=== PATIENT | male | born 1945 | race Caucasian/White ===

== ENCOUNTER → 2018-05-06 08:32 | Outpatient (CLI) | payer OTHER, SELFPAY ==
[2018-05-06 10:09] LABS: PSA,Total - Annual Screen 1.62 ng/mL (0.00-4.00)
== END ==
PROVIDERS: Family Provider Family Medicine; PCP Family Medicine; Referring Provider Urology; Visit Provider Urology
DX: Z12.5 Encounter for screening for malignant neoplasm of prostate (principal)
CPT/HCPCS: 36415; 84153; G0103

== ENCOUNTER 2018-06-03 06:48 | Day surgery (SDC) | payer SELFPAY, OTHER ==
--- NOTE | 2018-06-01 08:20 | EKG12_ITS ---
Test Reason : PRE OP Blood Pressure : / mmHG Vent. Rate : 076 BPM Atrial Rate : 076 BPM P-R Int : 156 ms QRS Dur : 094 ms QT Int : 402 ms P-R-T Axes : 060 -22 036 degrees QTc Int : 452 ms Normal sinus rhythm Minimal voltage criteria for LVH, may be normal variant Borderline ECG Confirmed by WINIFRED FARAH, ANTONELLA ([id number]), editorial specialist MARY GREEN ([id number]) on 06/03/2018 3:01:03 PM Referred By: Jewel Haque Confirmed By:ANTONELLA VITALE MD
[2018-06-01 09:42] LABS: Hematocrit 38.3 % (40-54); Hemoglobin 12.7 g/dl (13.0-16.5); Mean Corp Hgb Conc 33.2 g/gl (32-36); Mean Corpuscular Hgb 32.8 pg (27.0-32.0); Mean Platelet Vol. 9.8 fl (6.2-12.0); Platelet Count 167 K/mm3 (150-450); RBC Distribution Width CV 13.8 % (11.6-14.6); RBC Distribution Width SD 48.5 fl (35.1-43.9); Red Blood Count 3.87 M/mm3 (4.6-6.2)
[2018-06-01 09:43] LABS: Scan Indicated on CBC? Y/N NO
[2018-06-01 10:11] LABS: Anion Gap 7 (5-15); BUN 20 mg/dL (7-18); BUN/Creat Ratio 18.3 RATIO (10-20); Calcium,Total 8.2 mg/dL (8.5-10.1); Chloride 104 mmol/L (98-107); Creatinine, Serum 1.09 mg/dL (0.70-1.30); EST Glomerular Filtration Rate 71 mL/min (>60); Est Glom Filt Rate - Afr Amer 85 mL/min (>60); Glucose 98 mg/dL (74-106); Potassium 3.7 mmol/L (3.5-5.1); Sodium Level 142 mmol/L (136-145)
[2018-06-03] VITALS (8 sets, daily range): BP systolic 129–146; BP diastolic 75–92; PULSE 64–68; RESP 16–18; TEMP 36.2–36.8; O2SAT 94–100; BMI 34.1
--- NOTE | 2018-06-03 | HERN_PTH ---
PATIENT: FRANSISCO SILVERIO [place] [facility] [place][id number] AGE/SX: 73/M ROOM: RE06/03/[address]: Dr. Jewel Haque MD : 1945 BED: DIS: 06/03/2018 SPEC #: [id number] RECD: 06/03/18 14:41 STATUS: LEXUS PREET #: [id number] GRAYSON: 06/03/18 00:[address]: Jewel Haque DEPT: SURGICAL PATHOLOGY RECD BY: Howard Loera ENTERED: 06/03/18 14:42 SP TYPE: Hernia OTHR DR: Dr. Otoniel Diamond MD Tissues: HERNIA Procedures: Surgery Specimen Level II HEADER OPERATION: Hernia, umbilical repair with mesh, open PRE-OP DIAGNOSIS: Umbilical hernia with our obstruction or gangrene TISSUE SUBMITTED: Hernia sac and contents MICROSCOPIC DIAGNOSIS Soft tissue of umbilical region, excision: Hernia sac with fibrosis and mild chronic inflammation. AM:yuan 06/06/18 MICROSCOPIC DESCRIPTION Slides are reviewed. GROSS DESCRIPTION Received in fixative is one container labeled with the patient's name and designated umbilical hernia sac and contents. The specimen consists of a piece of yellow adipose tissue measuring 4 x 3.5 x 2.5 cm. Sections do not reveal any mass lesion. Iron Handler sections are submitted in one cassette. / SJ:yuan 06/03/18 TC:5 CPT: 75062
--- NOTE | 2018-06-03 09:28 | DCINST_ITS ---
Discharge Diet: Light diet - advance as tolerated - if you have questions about your diet instructions, please talk to you doctor. Discharge Activity: May Not Drive - for 1 week or while taking narcotic pain medicine. May shower in (days): 1 Lifting Restrictions: 10 pounds Call your doctor if your incision/area has: Continuous Slow Oozing, Sudden Increased Bleeding, Increased Pain/ Swelling, Increased Redness, Foul Smelling Discharge Call your doctor if you observe: Fever of 101 or Higher Suture Line Care: Avoid Pulling/Pushing, Avoid Pinching/Bending Additional Dressing/Incision Instructions:: Change or remove dressing in 4 days. Leave steri-strips in place for 1 week. Allergies/Adverse Reactions: Allergies Penicillins Allergy (Verified 05/31/18 09:00) Rash prednisolone Allergy (Verified 05/31/18 09:00) Rash Medications to take at Discharge finasteride 5 mg tablet 5 mg PO QHS 05/23/18 [place] 1 cap PO DAILY 05/31/18 Saw [place] 2 cap PO BID 05/31/18 Ubidecarenone/Vit E Acetate [Co Q-10 100 mg Softgel] 1 each PO BID 05/31/18 Vit A/Vit C/Vit E/Zinc/Copper [Preservision Areds Softgel] 1 each PO BID 05/31/18 Hydrocodone Bitart/Apap 5-325 [Fiatt 5MG-325MG] 1 tablet PO Q4H PRN PRN 3 Days #8 tablet 06/03/18 The following prescriptions were given: Hydrocodone Bitart/Apap 5-325 [Fiatt 5MG-325MG] 1 tablet PO Q4H PRN PRN 3 Days #8 tablet PRN Reason: Pain Primary Care Physician: Otoniel Diamond MD [Primary Care Provider] - Test Results: Test results from this visit will be discussed in further detail at your follow- up appointment, if applicable. Please Follow Up With: Jewel Haque MD - [phone] When: Call to make an appointment to be seen in about 10 days.
--- NOTE | 2018-06-03 10:18 | PCM.OPRPT ---
Problem List (1) Umbilical hernia without obstruction or gangrene Status: Acute Report of Operation Date of Procedure: 06/03/18 Pre-Operative Diagnosis: Umbilical hernia Post-Operative Diagnosis: Same Surgery/Procedure Performed:: Umbilical herniorrhaphy with 8 cm ventral X mesh. Reference #[id number]. Lot number [id number]. Expiry date 03/15/2020 Description of Surgical Findings:: Timeout and informed consent was obtained. 73-year-old gent was taken to the operating room placed on the table underwent general endotracheal intubation anesthesia. Clindamycin 90 mg were given intravenous preoperatively. The abdomen was sterilely prepped draped. A curvilinear incision was made in the infra portion of the umbilicus. Sharp and blunt dissection was used to dissect carefully the umbilical skin free from the hernia sac. There was a large amount of preperitoneal fat and omentum within the hernia sac. This was carefully dissected free and freed. Sac and contents were submitted as a specimen. Palpation revealed good release of the intra-abdominal omentum. The defect measured approximately 3-1/2 cm in diameter. A 8 cm ventral X product was inserted. The tails was carefully secured with interrupted 0 Nurolon. The fascia was then approximated transversely with interrupted 0 Nurolon. Skin edges proximate interrupted 4 Monocryl subdermal stitches. Steri-Strips cottonball Telfa OpSite dressings applied. Sponge and instrument and needle counts were reported to the surgeon be correct. Blood loss was minimal. No apparent complications. Specimen hernia sac and contents. Drains none. Blood loss minimal. Jewel Haque M.D., F.A.C.S. Type of Anesthesia:: General Anesthesiologist: Armando Lozada
--- NOTE | 2018-06-03 10:22 | OP.PCM_ITS ---
Problem List (1) Umbilical hernia without obstruction or gangrene Status: Acute Report of Operation Date of Procedure: 06/03/18 Pre-Operative Diagnosis: Umbilical hernia Post-Operative Diagnosis: Same Surgery/Procedure Performed:: Umbilical herniorrhaphy with 8 cm ventral X mesh. Reference #[id number]. Lot number [id number]. Expiry date 03/15/2020 Description of Surgical Findings:: Timeout and informed consent was obtained. 73-year-old gent was taken to the operating room placed on the table underwent general endotracheal intubation anesthesia. Clindamycin 90 mg were given intravenous preoperatively. The abdomen was sterilely prepped draped. A curvilinear incision was made in the infra portion of the umbilicus. Sharp and blunt dissection was used to dissect carefully the umbilical skin free from the hernia sac. There was a large amount of preperitoneal fat and omentum within the hernia sac. This was carefully dissected free and freed. Sac and contents were submitted as a specimen. Palpation revealed good release of the intra-abdominal omentum. The defect measured approximately 3-1/2 cm in diameter. A 8 cm ventral X product was inserted. The tails was carefully secured with interrupted 0 Nurolon. The fascia was then approximated transversely with interrupted 0 Nurolon. Skin edges proximate interrupted 4 Monocryl subdermal stitches. Steri-Strips cottonball Telfa OpSite dressings applied. Sponge and instrument and needle counts were reported to the surgeon be correct. Blood loss was minimal. No apparent complications. Specimen hernia sac and contents. Drains none. Blood loss minimal. Jewel Haque M.D., F.A.C.S. Type of Anesthesia:: General Anesthesiologist: Armando Lozada
[2018-06-03] MEDS: Bupivacaine Mpf 0.5% 30 ML VIAL (10:30)
== END 2018-06-03 14:03 | disposition home or self-care (01) ==
LOC: SDC 06:50 → AC 06:50
PROVIDERS: Family Provider Family Medicine; PCP Family Medicine; Referring Provider Surgery; Visit Provider Surgery
PROC: 0WQF4ZZ Repair Abdominal Wall, Percutaneous Endoscopic Approach (ICD-10-PCS; CPT 49585; principal; 2018-06-03 09:00)
DX: K42.9 Umbilical hernia without obstruction or gangrene (principal); N40.1 Benign prostatic hyperplasia with lower urinary tract symptoms; R33.8 Other retention of urine
CPT/HCPCS: 00750; 49585; 36415; 80048; 85027; 88302; 93005; J7120; C1781; J2405

== ENCOUNTER → 2018-11-18 | Outpatient (CLI) | payer SELFPAY ==
[2018-06-06 14:54] VITALS: BMI 34.1
[2018-11-16 08:26] LABS: Bacteria 0 SEEN /hpf (None Seen); Mucous, Urine 0 SEEN /hpf (<or=2+); Squamous Epithelial Cells - UA 0 SEEN /hpf (0-5)
[2018-11-16 08:48] LABS: Hematocrit 38.3 % (40-54); Hemoglobin 12.8 g/dl (13.0-16.5); Mean Corp Hgb Conc 33.4 g/gl (32-36); Mean Corpuscular Hgb 32.7 pg (27.0-32.0); Mean Platelet Vol. 9.3 fl (6.2-12.0); Platelet Count 180 K/mm3 (150-450); RBC Distribution Width CV 14.2 % (11.6-14.6); RBC Distribution Width SD 48.5 fl (35.1-43.9); Red Blood Count 3.91 M/mm3 (4.6-6.2); Scan Indicated on CBC? Y/N NO; White Blood Count 6.3 K/mm3 (4.4-11.0)
[2018-11-16 08:54] LABS: Color, Urine Yellow (Yellow); Glucose, Dipstick Normal (Normal); Ketone-Dipstick Negative (Negative); Leukocyte Esterase-Dipstick 25 /ul (Negative); Nitrite-Dipstick Negative (Negative); Occult Blood-Urine 10 /ul (Negative); Protein-Dipstick Negative (Negative); Specific Gravity, Urine 1.015 (1.002-1.030); Urine Bilirubin Dipstick Negative (Negative); Urine Clarity Clear (Clear); Urine Urobilinogen Normal (Normal)
[2018-11-16 09:03] LABS: Red Blood Cells-Urine 0-5 SEEN /hpf (0-5); White Blood Cells 0-5 SEEN /hpf (0-5)
[2018-11-16 09:11] LABS: Hemoglobin A1c 5.4 % (4.2-6.3)
[2018-11-16 09:20] LABS: ALB/GLOB Ratio 0.7 RATIO (0.9-2.4); AST(SGOT) 26 U/L (15-37); Alanine Aminotransfer ALT/SGPT 37 U/L (16-61); Albumin, Serum 3.5 g/dL (3.2-5.0); Alkaline Phosphatase 82 U/L (45-117); Anion Gap 4 (5-15); BUN 16 mg/dL (7-18); BUN/Creat Ratio 15.4 RATIO (10-20); Calcium,Total 8.5 mg/dL (8.5-10.1); Chloride 106 mmol/L (98-107); Cholesterol 95 mg/dL (200); Creatinine, Serum 1.04 mg/dL (0.70-1.30); EST Glomerular Filtration Rate 74 mL/min (>60); Est Glom Filt Rate - Afr Amer 90 mL/min (>60); Globulin 4.7 g/dL (2.2-4.2); Glucose 106 mg/dL (74-106); High Density Lipoprotein 32 mg/dL; PSA,Total - Annual Screen 1.76 ng/mL (0.00-4.00); Potassium 3.7 mmol/L (3.5-5.1); Protein, Total 8.2 g/dL (6.4-8.2); Sodium Level 141 mmol/L (136-145); Thyroid Stim Hormone (TSH) 2.47 uIU/mL (0.358-3.74); Triglycerides 82 mg/dL; Very Low Density Lipoprotein 16 mg/dL (5-40)
[2018-11-16 09:32] LABS: Homocysteine 8.2 umol/L (3.2-10.7)
[2018-11-16 09:55] LABS: Vitamin D,25 Hydroxy 20.8 ng/mL (29.95-100.01)
--- NOTE | 2018-11-18 09:45 | EKG12_ITS ---
Test Reason : EXEC PHYS Blood Pressure : / mmHG Vent. Rate : 054 BPM Atrial Rate : 054 BPM P-R Int : 158 ms QRS Dur : 090 ms QT Int : 450 ms P-R-T Axes : 044 -13 029 degrees QTc Int : 426 ms Sinus bradycardia with sinus arrhythmia Otherwise normal ECG Confirmed by WINIFRED FARAH, ANTONELLA ([id number]), assignment desk editor YUDITH COOLEY ([id number]) on 11/22/2018 1:44:53 PM Referred By: Jose Schroeder Confirmed By:ANTONELLA VITALE MD
--- NOTE | 2018-11-18 19:32 | BFS_ITS ---
Reason For Study: Screening Carotid Duplex Ultrasound Abdominal Aorta The right maximum ICA velocity is 92.5/21.2 cm/s. The maximal outside diameter of the proximal aorta The left maximum ICA velocity is 85.1/22.5 cm/s. measures 1.82 x 1.81 cm in the cross-sectional The right ECA velocity is less than 125 cm/s. axis. The left ECA velocity is less than 125 cm/s. The maximal outside diameter of the proximal aorta There is no plaque formation noted on the right measures 1.63 cm in the longitudinal axis. side. There is insignificant plaque formation noted on the left side. Interpretation Summary Normal carotid artery screening (0 to 15% narrowing). Normal aortic ultrasound exam. Performed By: Maureen Cage RVT
== END | disposition home or self-care (01) ==
LOC: PAVLAB 08:20
PROVIDERS: Family Provider Family Medicine; PCP Family Medicine; Referring Provider Internal Medicine; Visit Provider Internal Medicine
DX: Z00.00 Encounter for general adult medical examination without abnormal findings (principal)
CPT/HCPCS: 36415; 80053; 80061; 81001; 82306; 83036; 83090; 84153; 84443; 85027; 93005; G0103

== ENCOUNTER 2019-01-09 07:47 | Day surgery (SDC) | payer SELFPAY ==
[2018-11-18 14:53] VITALS: BMI 34.1
[2019-01-09 08:09] VITALS: BP 117/79; PULSE 74; RESP 16; TEMP 36.4; O2SAT 97; BMI 32.7
--- NOTE | 2019-01-09 09:03 | HP.PCM_ITS ---
History of Present Illness Date of Admission: 01/09/19 The patient is a 73 year old M who presents for screening colonoscopy. Past Medical/Surgical History - Planned Operation Planned Operative Procedure/s: COLONOSCOPY Date of Operative Procedure: 01/09/19 Permit Signed: Yes S.O.S: No - Previous Hospitalizations/Surgeries HX Hospitalizations: No HX of Surgeries: LAP ZEUS. HERNIA Any Problems With Anesthesia: No You/Your Family Experience Fever (Hyperthermia) With Anes: No Cholinesterase deficiency: No - Cardiovascular Hx Chest Pain within Last 2 months: No Hx of Irregular Heartbeat and/or Afib: No Hx Heart Attack: No Hx Congestive Heart Failure: No Hx Rheumatic Fever: No Hx Hypertension: No Hx Internal Defibrillator: No Hx Pacemaker: No Hx Cardiac Catheterization: No Hx Cardiac Surgery/Stents/Etc.: No Hx Stress Test: Yes - [facility] HX Edema: Yes - WEARS COMPRESSION SOCKS Hx Pain in Legs when Walking/Leg Cramps: No - Respiratory Chronic Cough: No HX of Shortness of Breath: No Hoarseness: No Hx Chronic Obstructive Pulmonary Disease (COPD): No Hx Asthma: No Hx Emphysema: No Hx Sleep Apnea: No Hx Oxygen Use at Home: No Hx Respiratory Tract Infection/Cold (presently): No - SINUS DRAINAGE Do You Snore Loudly (louder than talking or can be heard): Yes Do You Often Feel Tired/ Fatigued/ Sleepy Dring Daytime?: No Has Anyone Observed You Stop Breathing During Sleep?: No Result (for STOP score): Negative Hx Smoking: No Smoking Status: Never smoker - Gastrointestinal Hx Gastroesophageal Reflux: No Hx Gastrointestinal Disorders: No Hx Gastrointestinal Bleed: No Hx Ulcer: No Hx Hiatal Hernia: No Difficulty Chewing/Swallowing: No Recent Onset of Swallowing Problems: No Special diet followed at home: No Hx Unplanned Weight Loss of 20#: No HX Unplanned Weight Gain of 20#: No - Neurological Hx Seizures: No HX Syncope/Blackout Spells/Unconsciousness: No Hx CVA/Stroke: No Hx Transient Ischemic Attacks (TIA): No Hx Multiple Sclerosis: No Hx Parkinson's Disease: No Hx Head/Neck Injury: No Hx Headaches: No Hx Back Injury/Pain: Yes - LOWER PACK PAIN Recent Onset of Speech Difficulty: No Restless Legs: No Does patient have nerve stimulator: No - Blood Disorder Hx Leukemia: No Bleeding Tendencies: No Hx Deep Vein Thrombosis: No Hx High Cholesterol: No Blood Transmitted Disease: No Hx Hepatitis: No Hx Cirrhosis: No Hx Anemia: No Hx Blood Disorders: No - Genitourinary Hx Renal Disease: No - BPH Hx Dialysis: No - Musculoskeletal Hx Arthritis: No Hx Rheumatoid Arthritis: No Hx Gout: No Recent Onset of an Orthopedic Problem: No - Endocrine Hx Diabetes: No Thyroid Disease: No Hx Steroid Therapy: No - Psycho/Social Hx Substance Use: No Hx Alcohol Use: No Hx Anxiety: No Hx Depression: No Mental Illness: No Hx Dementia: No - Miscellaneous Hx Cancer: No Recent Exposure to Contagious Disease: No Active MRSA: No Hx of C-Diff: No Any Loose Teeth: No Allergies Penicillins Allergy (Verified 01/09/19 08:04) Rash prednisolone Allergy (Verified 01/09/19 08:04) Rash Maternal Family History: Family History (Last Updated 11/17/18 @ 10:29 by Shazia Handy) Father Rheumatoid arthritis CHF (congestive heart failure) - - Discharge Is Pt Admitted From a [facility], or a Prison: No Who Could Help: After D/C, Where Do you Plan to Go: Return Home - Physical Exam General: Alert, Oriented x3 Lungs: Clear to auscultation Cardiovascular: Regular rate, Regular Rhythm, No murmurs Abdomen: Bowel Sounds Present, Soft, Non Tender, Non-Distended Vital Signs Temp Pulse Resp BP Pulse Ox 97.5 F L 74 16 117/79 97 01/09/19 08:09 01/09/19 08:09 01/09/19 08:09 01/09/19 08:09 01/09/19 08:09 Oxygen Delivery Method Room Air Weight: 231 lb 7.766 oz Body Mass Index (BMI) 32.7 Assessment/Plan All Active Problems (Last Updated 11/17/18 @ 10:27 by Shazia Handy) Umbilical hernia without obstruction or gangrene (Acute) Urinary retention (Acute) BPH (benign prostatic hyperplasia) (Acute) Plan is to perform a colonoscopy. Surgery Risks - Colonoscopy Risks Include but are not Limited To: Risks include but are not limited to: Bleeding, perforation requiring further surgery, inability to complete colonoscopy requiring barium enema.
[2019-01-09 09:25] VITALS: BP 117/79; BP 130/77; PULSE 68; RESP 18; TEMP 36.5; O2SAT 95
--- NOTE | 2019-01-09 09:27 | OP.ENDO_ITS ---
01/09/2019 Otoniel Diamond [address] [place] [address] Re : Colonoscopy procedure for Daniel August Dear Dr. Diamond This procedure was performed on Wednesday, January 09, 2019. My impressions and recommendations are as follows: Impressions : - Diverticulosis in the sigmoid colon and in the descending colon. No specimens collected. - Non-bleeding internal hemorrhoids. - The examination was otherwise normal. Recommendations : - Discharge patient to home. - Resume previous diet. - Continue present medications. - Repeat colonoscopy in 10 years for screening purposes. - Return to primary care physician (date not yet determined). My findings are described in the full procedure note, which is enclosed. If I can be of further assistance, please feel free to contact me at Doctor phone number(s): , Fax: [phone], Work: . Sincerely, MD Marky Gregory MD 01/09/2019 9:26:57 AM This report has been signed electronically.
[2019-01-09 09:30] VITALS: BP 117/79; BP 122/84; PULSE 68; RESP 16; O2SAT 94
[2019-01-09 09:35] VITALS: BP 117/79; BP 129/86; PULSE 67; RESP 16; O2SAT 93
[2019-01-09 09:37] VITALS: BP 117/79; BP 132/88; PULSE 65; RESP 16; TEMP 36.4; O2SAT 95
[2019-01-09 10:07] VITALS: BP 117/79
== END 2019-01-09 11:05 | disposition home or self-care (01) ==
LOC: EN 07:48 → AC 07:49
PROVIDERS: Family Provider Family Medicine; PCP Family Medicine; Referring Provider Family Medicine; Visit Provider Surgery
PROC: 0DJD8ZZ Inspection of Lower Intestinal Tract, Via Natural or Artificial Opening Endoscopic (ICD-10-PCS; CPT 45378; principal; 2019-01-09 09:10)
DX: Z12.11 Encounter for screening for malignant neoplasm of colon (principal); K57.30 Diverticulosis of large intestine without perforation or abscess without bleeding; K64.8 Other hemorrhoids
CPT/HCPCS: 45378; J7120

== ENCOUNTER → 2019-05-12 08:26 | Outpatient (CLI) | payer OTHER, SELFPAY ==
[2019-05-12 10:02] LABS: PSA,Total- Diagnostic 4.34 ng/mL (0.0-4.0)
== END ==
PROVIDERS: Family Provider Family Medicine; PCP Family Medicine; Referring Provider Urology; Visit Provider Urology
DX: R97.20 Elevated prostate specific antigen [PSA] (principal)
CPT/HCPCS: 36415; 84153

== ENCOUNTER → 2019-12-13 10:34 | Outpatient (CLI) | payer OTHER, SELFPAY ==
[2019-12-13 11:32] LABS: PSA,Total- Diagnostic 1.15 ng/mL (0.0-4.0)
== END ==
PROVIDERS: PCP Family Medicine; Referring Provider Urology; Visit Provider Urology
DX: R97.20 Elevated prostate specific antigen [PSA] (principal)
CPT/HCPCS: 36415; 84153

== ENCOUNTER → 2020-10-11 09:59 | Outpatient (CLI) | payer OTHER, SELFPAY ==
[2020-10-11 08:47] VITALS: BMI 33.3
[2020-10-11 11:01] LABS: PSA,Total- Diagnostic 0.97 ng/mL (0.0-4.0)
== END ==
PROVIDERS: PCP Family Medicine; Referring Provider Urology; Visit Provider Urology
DX: R97.20 Elevated prostate specific antigen [PSA] (principal)
CPT/HCPCS: 36415; 84153

== ENCOUNTER → 2020-11-06 08:35 | Outpatient (CLI) | payer SELFPAY, OTHER ==
[2020-10-11 08:47] VITALS: BMI 33.3
--- NOTE | 2020-11-06 08:36 | MRI_ITS ---
STUDY: MRI LUMBAR SPINE WITHOUT CONTRAST REASON FOR EXAM: Male, 75 years old. pain TECHNIQUE: Standardized fat and water weighted pulse sequences were obtained in the sagittal and axial planes. COMPARISON: X-ray 10/11/2020 FINDINGS: T12-L1: Normal endplates. Normal disc height, hydration and morphology. Normal bilateral facet joints. Normal central canal and bilateral lateral recesses. Normal bilateral intervertebral neural foramina. Normal lumbar lordosis. Mild levoscoliosis centered at L3. Normal conus medullaris that terminates at the T12/L1. Heterogeneous marrow signal throughout the lumbar spine and sacrum suggestive of marrow regeneration from chronic hypoventilation, lung disease, or anemia. L1-2: Disc desiccation but no disc protrusion, spinal stenosis, or neural foraminal stenosis. L2-3: Disc desiccation but no disc protrusion, spinal stenosis, or neural foraminal stenosis. L3-4: Mild bilateral facet hypertrophy and ligament flavum hypertrophy. Mild bilobed disc protrusion produces mild spinal stenosis and mild bilateral neural foraminal stenosis. L4-5: Mild bilateral facet hypertrophy and moderate ligament flavum hypertrophy. Mild broad disc protrusion produces mild spinal stenosis with mild bilateral lateral recess stenosis, moderate right neural foraminal stenosis with abutment of the right L4 nerve root laterally and mild left neural foraminal stenosis. L5-S1: Mild bilateral facet hypertrophy and ligament flavum hypertrophy. Mild broad disc protrusion and left foraminal protrusion produces mild spinal stenosis, mild right neural foraminal stenosis and moderate left neural foraminal stenosis with abutment of the left L5 nerve roots laterally. Normal visualized sacral ala. Normal visualized paraspinous soft tissue structures. MRI/Spine Lumbar (Routine) IMPRESSION: Mild levoscoliosis with degenerative disc disease as described above. Electronically Signed: Ziyad Shepherd MD at 17:42 EDT Tel , Service support ,
== END ==
PROVIDERS: PCP Family Medicine; Referring Provider Orthopaedic Surgery; Visit Provider Orthopaedic Surgery
DX: M47.896 Other spondylosis, lumbar region (principal)
CPT/HCPCS: 72148

== ENCOUNTER 2020-11-27 08:17 | Day surgery (SDC) | payer SELFPAY, OTHER ==
[2020-10-11 08:47] VITALS: BMI 33.3
--- NOTE | 2020-11-22 08:45 | EKG12_ITS ---
Test Reason : PRE OP Blood Pressure : / mmHG Vent. Rate : 078 BPM Atrial Rate : 078 BPM P-R Int : 156 ms QRS Dur : 102 ms QT Int : 404 ms P-R-T Axes : 050 -35 052 degrees QTc Int : 460 ms Sinus rhythm with marked sinus arrhythmia Left axis deviation Voltage criteria for left ventricular hypertrophy Abnormal ECG Confirmed by WINIFRED FARAH, ANTONELLA ([id number]), mapping editor YUDITH COOLEY ([id number]) on 11/26/2020 8:37:55 AM Referred By: Mahendra Moody Confirmed By:ANTONELLA VITALE MD
[2020-11-27] VITALS (12 sets, daily range): BP systolic 120–144; BP diastolic 62–79; PULSE 53–66; RESP 16–18; TEMP 36.1–37.2; O2SAT 94–100; BMI 33.2; BMI 33.7
[2020-11-27] MEDS: Lactated Ringers 1,000 ML 100 ML IV (09:48)
--- NOTE | 2020-11-27 11:47 | HP.PCM_ITS ---
[facility] - General General Date of Admission: 01/09/19 HPI Narrative FRANSISCO SILVERIO, is a 75 M who presents for transurethral resection of the prostate has a very large prostate been a medical therapy for a long time and still having significant urinary symptoms so we will proceed with surgery in the prostate. FORMERLY [facility], 1928–1983 Medical History (Updated 11/21/20 @ 08:18 by Ayaka Julio) BPH (benign prostatic hyperplasia) Edema GERD (gastroesophageal reflux disease) History of stress test Non-smoker Pancreatitis Restless legs Umbilical hernia without obstruction or gangrene Urinary retention Wears glasses Home Medications tamsulosin 0.4 mg capsule 0.4 mg PO DAILY 10/11/20 [History Last Taken 11/26/20] finasteride 5 mg PO DAILY 11/21/20 [History Last Taken 11/26/20] PreserVision AREDS-2 1 tab PO BID 11/27/20 [History Last Taken 11/26/20] ascorbic acid (vitamin C) [Vitamin C] 1,000 mg PO DAILY 11/27/20 [History Last Taken 11/26/20] capsicum (cayenne) 1 mg PO DAILY 11/27/20 [History Last Taken 11/26/20] cholecalciferol (vitamin D3) [Vitamin D3] 10 mcg PO DAILY 11/27/20 [History Last Taken 11/26/20] ciprofloxacin HCl [Cipro] 500 mg PO BID #10 tab 11/27/20 [Rx Last Taken Unknown] [id number] G3-R9-H-mag--zinc 1 cap PO DAILY 11/27/20 [History Last Taken 11/26/20] Allergy/AdvReac Type Severity Reaction Status Date / Time Penicillins Allergy Rash Verified 11/21/20 08:01 prednisolone Allergy Rash Verified 11/21/20 08:01 Family History (Updated 11/17/18 @ 10:29 by Shazia Handy) Father Rheumatoid arthritis CHF (congestive heart failure) Surgical History (Updated 11/21/20 @ 08:18 by Ayaka Julio) History of cholecystectomy History of colonoscopy History of umbilical hernia repair (~05/2018) S/P laparoscopic cholecystectomy Social History (Updated 10/11/20 @ 09:[address] Gerry Garcia DO) Smoking Status: Never smoker alcohol intake: never substance use type: does not use what type of physical activity do you participate in: none Vital Signs Vital Signs Vital Signs: 11/27/20 09:34 Temperature 98.5 F Temperature Source Temporal Pulse Rate 53 L Respiratory Rate 18 Respiratory Pattern Normal Blood Pressure 125/69 H Blood Pressure Mean 87 Blood Pressure Source Monitor Blood Pressure Position Sitting Blood Pressure Location Left Arm Pulse Ox 100 Oxygen Delivery Method Room Air Physical Exam Const alert and oriented x3 General Appearance: cooperative HEENT normocephalic, head/scalp atraumatic, EAC's normal and TM's normal bilaterally Eyes PERRL and EOMs intact bilaterally Pupil: sluggish Neck no lymphadenopathy, supple and no JVD General: trachea midline Lymph Lymphatic: no lymphadenopathy noted, lymphedema and lymphadenopathy Resp normal respiratory effort, normal air movement and clear to auscultation bilaterally Cardio regular rate, regular rhythm and peripheral pulses 2+ throughout GI soft to palpation, non-tender and non-distended Extremity normal capillary refill and no clubbing, cyanosis or edema General Extremity: no tenderness to palpation of joints or extremities Skin no rashes or lesions noted General Skin Exam: turgor normal Lesions: no lesions Rashes: no rashes Neuro CN's II-XII intact bilaterally Speech: speech normal Motor Exam: strength 5/5 throughout; Negative for general weakness Psych thought process normal, cooperative and affect normal Appearance: appropriate Assessment & Plan Assessment/Plan (1) BPH (benign prostatic hyperplasia): PLAN: Plan for transurethral section of the prostate.
--- NOTE | 2020-11-27 11:48 | PCM.DC ---
Discharge Instructions Diet Discharge Diet: No restrictions Activity Discharge Activity: May not drive while taking narcotic pain medications. (for 3 days.) May shower in (days): 1 Dressing / Incision Call your doctor if your incision/area has: Continuous Slow Oozing, Increased Pain/ Swelling, Increased Redness and Foul Smelling Discharge Call your doctor if you observe: Fever of 101 or Higher, Numbness or Tingling, Shortness of breath, Dizziness, Calf discomfort and Uncontrolled pain Cleanse incision/area with: Keep Dressing Clean & Dry Follow Up Care Please Follow Up With: Mahendra Moody MD When: Call [phone] for an appointment Test Results: Test results from this visit will be discussed in further detail at your follow-up appointment, if applicable. Discharge Plan Admission Primary Reason for Your Visit: turp Attending Provider: Mahendra Moody Primary Care Provider: Otoniel Parks Instructions Patient Instructions: Transurethral Resection of the Prostate (TURP): Home Recovery Discharge Orders/Prescriptions Prescriptions: New ciprofloxacin HCl [Cipro] 500 mg tablet 500 mg PO BID Qty: 10 RF: 0 Continued tamsulosin 0.4 mg capsule 0.4 mg PO DAILY RF: 0 finasteride 5 mg Tablet 5 mg PO DAILY RF: 0 ascorbic acid (vitamin C) [Vitamin C] 1,000 mg Tablet 1,000 mg PO DAILY RF: 0 capsicum (cayenne) 447 mg Capsule 1 mg PO DAILY RF: 0 cholecalciferol (vitamin D3) [Vitamin D3] 10 mcg (400 unit) Tablet 10 mcg PO DAILY RF: 0 [id number] N4-U5-Y-mag--zinc 28-82-74-250 mg Capsule 1 cap PO DAILY RF: 0 PreserVision AREDS-2 250-90-40-1 mg Capsule 1 tab PO BID RF: 0 Referrals / Follow Up: Mahendra Moody MD [STAFF PHYSICIAN] - Otoniel Parks MD [Primary Care Provider] -
[2020-11-27] MEDS: Cefazolin 2 GM in 0.9% Normal Saline 100 ML IV (11:49)
--- NOTE | 2020-11-27 12:05 | PROS_PTH ---
PATIENT: FRANSISCO SILVERIO [place] [facility] [place][id number] AGE/SX: 75/M ROOM: RE11/27/[address]: Dr. Mahendra Moody MD : 1945 BED: DIS: 11/28/2020 SPEC #: [id number] RECD: 11/27/20 15:00 STATUS: LEXUS OVIEDO #: [id number] GRAYSON: 11/27/20 12:[address]: Mahendra Moody DEPT: SURGICAL PATHOLOGY RECD BY: Aggie Jason ENTERED: 11/28/20 10:25 SP TYPE: TURP OTHR DR: Dr. Otoniel Parks MD Tissues: Prostate, NOS Procedures: Surgery Specimen Level IV HEADER OPERATION: Cysto, TUR prostate, Olympus PRE-OP DIAGNOSIS: BPH with obstruction TISSUE SUBMITTED: Prostate pieces MICROSCOPIC DIAGNOSIS Prostate pieces, TUR: Benign prostatic hyperplasia, glandular and stromal type. Focal chronic inflammation. SJ:yuan 11/29/2020 MICROSCOPIC DESCRIPTION Slides are reviewed. GROSS DESCRIPTION Received is one container labeled with the patient's name and designated prostate pieces. The specimen consists of multiple irregular fragments of pink-thorn[place], rubbery, soft tissue that in aggregate weigh 14 gm and measure in aggregate 6 x 5 x 2.5 cm. A few blood clots are also noted. Shake Loader tissue is submitted in ten cassettes. / CHAPARRITA:yuan 11/28/20 TC:5 CPT: 30600
--- NOTE | 2020-11-27 12:55 | OP.PCM_ITS ---
Problems Associated Problem List Diagnoses (1) BPH (benign prostatic hyperplasia): Report of Operation Date of Procedure: 11/27/20 Pre-Operative Diagnosis: BPH with obstruction Post-Operative Diagnosis: Same Surgery/Procedure Performed:: Transurethral section of prostate Description of Surgical Findings:: In the preoperative setting I discussed with the patient how the surgery would be done with expect afterwards. We discussed how a prostate resection is done and we discussed the risk of the surgery including, bleeding, infection, retrograde ejaculation, changes with ejaculation or intercourse,. We discussed the possibility that the resection of the prostate may not alleviate his urinary symptoms. We discussed the small risk of developing scar tissue along the urethral channel and strictures. We also discussed the chance of the prostate could grow back and he may need further surgery or treatment in the future for prostate problems. Patient was taken back to the operating room, timeout procedure was performed, he was identified and marked and placed on the operating room table. He underwent general anesthesia. He was placed in dorsolithotomy position. Penis and testicles were prepped and draped in usual sterile fashion. Went into the bladder using the visual obturator with a resectoscope. Once inside the bladder identified the right and left ureteral orifice. I then identified the prostate and the anatomy of the prostate. I marked out the area of the sphincter and the verumontanum was identified. I then proceeded with the prostate resection first resected the median lobe. And then resected the right lobe of the prostate. Then to resect the left lobe of the prostate. I then resected the apical tissue of the prostate. Made sure that there was no injury to the sphincter or the verumontanum was still intact. At the end of the resection all the chips were Ellik out of the bladder. I then identified the left and right ureteral orifice and these were confirmed to be in good position and effluxing and not injured. The resectoscope was removed, a 22 Fijian catheter was placed into the bladder on continuous irrigation. And the urine was fairly light pink color and draining normally. He was taken back to the PACU in good condition. Type of Anesthesia: General Drains: 22fr 3 way Admit VTE Documentation VTE Present on Admission: No VTE Mechan Device Prophylaxis: SCD's
[2020-11-27] MEDS: HYDROcodone Bitartrate/Apap 5/325 Tablet PO (14:56)
[2020-11-27] MEDS: Ciprofloxacin 400 MG/200 ML BAG 200 MG IV (21:30)
[2020-11-27] MEDS: Ondansetron 4 MG/2 ML Vial IV (22:45)
[2020-11-28 03:11] VITALS: BP 107/53; PULSE 60; RESP 18; TEMP 36.6; O2SAT 97
[2020-11-28] MEDS: Lactated Ringers 1,000 ML 100 ML IV ×2 (03:16→07:49)
[2020-11-28] MEDS: HYDROcodone Bitartrate/Apap 5/325 Tablet PO (07:50)
[2020-11-28] MEDS: Tamsulosin HCl 0.4 MG Capsule PO (07:51)
[2020-11-28] MEDS: Finasteride 5 MG Tablet PO (07:51)
[2020-11-28 08:24] VITALS: BP 124/66; PULSE 60; RESP 18; TEMP 36.7; O2SAT 94
[2020-11-28] MEDS: Ciprofloxacin 400 MG/200 ML BAG 200 MG IV (10:19)
--- NOTE | 2020-11-28 14:05 | PHA.DC.MC ---
Pharmacy Service has performed discharge medication reconciliation and counseling for this patient. The patient was counseled on the following discharge medications and changes in medications for homegoing were reviewed. 1. CIPRO The Reason for Use, instructions for use, and potential side effects were reviewed for all new medications. The patient's questions regarding all of their medications were answered. The patient was able to verbally demonstrate an understanding of their discharge medications. Home Medications tamsulosin 0.4 mg capsule 0.4 mg PO DAILY 10/11/20 finasteride 5 mg PO DAILY 11/21/20 PreserVision AREDS-2 1 tab PO BID 11/27/20 ascorbic acid (vitamin C) [Vitamin C] 1,000 mg PO DAILY 11/27/20 capsicum (cayenne) 1 mg PO DAILY 11/27/20 cholecalciferol (vitamin D3) [Vitamin D3] 10 mcg PO DAILY 11/27/20 ciprofloxacin HCl [Cipro] 500 mg PO BID #10 tab 11/27/20 [id number]--[id number] 1 cap PO DAILY 11/27/20 The patient's discharge medication list was reviewed for discrepancies and discrepancies were resolved.
== END 2020-11-28 13:25 | disposition home or self-care (01) ==
LOC: SDC 08:18 → AC 08:19 → MS3 11-28 08:21
PROVIDERS: PCP Family Medicine; Referring Provider Urology; Visit Provider Urology
PROC: (CPT 52601; principal; 2020-11-27 11:55)
DX: N40.1 Benign prostatic hyperplasia with lower urinary tract symptoms (principal); N13.8 Other obstructive and reflux uropathy; R35.0 Frequency of micturition; R35.1 Nocturia; K21.9 Gastro-esophageal reflux disease without esophagitis; Z87.19 Personal history of other diseases of the digestive system
CPT/HCPCS: 00914; 52601; 87426; 88305; 93005; 99251; C9803; J7120; G0463; J0744; J2405

== ENCOUNTER 2021-06-12 07:43 | Inpatient (IN) | payer OTHER, SELFPAY ==
[2021-06-12] VITALS (10 sets, daily range): BP systolic 120–139; BP diastolic 58–76; PULSE 58–88; RESP 18–38; TEMP 35.8–39.3; O2SAT 84–97; BMI 33.3; BMI 31.9
--- NOTE | 2021-06-12 07:46 | EKG12_ITS ---
Test Reason : SOB Blood Pressure : / mmHG Vent. Rate : 086 BPM Atrial Rate : 086 BPM P-R Int : 140 ms QRS Dur : 094 ms QT Int : 374 ms P-R-T Axes : 081 -28 018 degrees QTc Int : 447 ms Sinus rhythm with Premature atrial complexes Otherwise normal ECG Confirmed by WINIFRED FARAH, ANTONELLA ([id number]), editor greeting card YUDITH COOLEY ([id number]) on 06/13/2021 11:45:15 AM Referred By: FELIPE Confirmed By:ANTONELLA VITALE MD
--- NOTE | 2021-06-12 07:49 | EDS_ITS ---
HPI History of Present Illness Chief Complaint: Alt LOC Informant: patient and EMS Narrative Narrative: 76-year-old male presenting to the emergency room with altered mental status and shortness of breath. Patient cannot really provide much history for me so we are relying on EMS and his recent urgent care note. Using these resources I see the patient fell ill approximately 12 days ago with cough. He was seen at the urgent care where it was felt that he had bilateral pneumonia and was placed on azithromycin and cefdinir. He declined Covid testing at that time. EMS notes that he was hypoxic upon their presentation and confused. There is a history of BPH and pancreatitis. [facility] Medical History BPH (benign prostatic hyperplasia) Edema GERD (gastroesophageal reflux disease) History of stress test Macular degeneration of left eye Macular degeneration of right eye Non-smoker Pancreatitis Restless legs Umbilical hernia without obstruction or gangrene Urinary retention Wears glasses Home Medications azithromycin 250 mg tablet See Rx Instructions PO .COMPLEX #6 tab 06/09/21 [Rx Last Taken Unknown] cefdinir 300 mg capsule 300 mg PO BID #10 cap 06/09/21 [Rx Last Taken Unknown] guaifenesin 1,200 mg tablet, extended release 12 hr 1,200 mg PO BID PRN #20 tab 06/09/21 [Rx Last Taken Unknown] Allergy/AdvReac Type Severity Reaction Status Date / Time Penicillins Allergy Rash Verified 06/12/21 07:53 prednisolone Allergy Rash Verified 06/12/21 07:53 Family History (Updated 11/17/18 @ 10:29 by Shazia Handy) Father Rheumatoid arthritis CHF (congestive heart failure) Surgical History History of cholecystectomy History of colonoscopy History of prostate surgery History of umbilical hernia repair (~05/2018) S/P laparoscopic cholecystectomy Social History Smoking Status: Never smoker alcohol intake: never substance use type: does not use what type of physical activity do you participate in: none ROS ROS ED Constitutional Constitutional ED: Reports chills, fever(s) and sweats; Denies weight loss Eyes Eyes: Denies change in vision or diplopia ENT ENT ED: Denies ear pain, rhinorrhea or sore throat Cardiovascular Cardiovascular: Denies chest pain, orthopnea, palpitations or racing heartbeat Respiratory/Chest Respiratory/Chest: Reports cough, dyspnea and dyspnea on exertion; Denies orthopnea Gastrointestinal Gastrointestinal: Denies abdominal pain, diarrhea, nausea or vomiting Genitourinary Genitourinary ED: Denies dysuria, hematuria or urinary frequency Musculoskeletal Musculoskeletal: Reports myalgias; Denies arthralgias Integumentary Denies abscess or rash Neurologic Neurologic: Denies headache(s) or weakness Psychiatric Psychiatric: Denies anxiety, depression, suicidal ideation or suicidal thoughts Endocrine Endocrinology: Denies polydipsia, polyphagia or polyuria Allergic/Immunologic Allergic/Immunologic ED: Denies mouth swelling, tongue swelling or urticaria EXAM Physical Exam Const Vital Signs: 06/12/21 07:45 06/12/21 08:21 06/12/21 08:40 Temperature 102.8 F H 102.8 F H Temperature Source Oral Oral Pulse Rate 88 86 Respiratory Rate 28 H 38 H Respiratory Effort Short of Breath Respiratory Pattern Tachypnea Blood Pressure 120/63 128/58 H Blood Pressure Mean 82 81 Pulse Ox 84 91 86 Oxygen Delivery Method Room Air Nasal Cannula High Flow Oxygen Flow Rate (L/min) 7 7 06/12/21 08:42 06/12/21 09:14 Temperature 98.6 F Temperature Source Oral Pulse Rate 85 77 Respiratory Rate 26 H 29 H Respiratory Effort Respiratory Pattern Blood Pressure 132/67 H 126/66 H Blood Pressure Mean 88 86 Pulse Ox 96 96 Oxygen Delivery Method High Flow High Flow Oxygen Flow Rate (L/min) 9 9 Positive well nourished and well developed General Appearance ED: well developed HEENT Reports normocephalic, head/scalp atraumatic, TM's clear and moist mucous membranes Negative for trauma Tympanic Membrane ED: Yes TM's clear Eyes PERRL and EOMs intact bilaterally Neck no lymphadenopathy, supple and no JVD Resp Resp Narrative: Patient with respiratory distress Cardio regular rate, regular rhythm and no murmurs GI normal to inspection, nondistended, normoactive bowel sounds and non-tender Palpation: soft Back/Spine no CVA tenderness and normal ROM Extremity normal to inspection General Extremety ED: Negative for edema General Extremity: Negative for edema Neuro CN's II-XII intact bilaterally Sensorium / Orientation: alert and orientation impaired Motor Exam: strength 5/5 throughout Psych Mood & Affect: Negative for depressed or tearful Skin no rashes or lesions noted and no wounds MDM MDM MDM Narrative Medical decision making narrative: Patient's Covid test is positive. He is leukopenic at 2.3 with a hemoglobin of 9.7 and platelet count of 128. Troponin is 29. Creatinine 1.44 with a BUN of 27. Beta natruretic peptide at 118.3. My interpretation of the chest x-ray is bilateral multifocal infiltrates consistent with COVID-19 diagnosis. Patient is currently on high flow nasal cannula at 9 L. CTA of the chest is negative for pulmonary embolism. Patient received a dose of Decadron. Lab Data Attestation: I reviewed the patient's lab results. Labs: Laboratory Results - last 24 hr 06/12/21 06/12/21 06/12/21 07:21 07:21 07:21 WBC 2.3 L RBC 2.75 L Hgb 9.7 L Hct 27.8 L MCV 101.1 H MCH 35.3 H MCHC 34.9 RDW Std Deviation 52.8 H RDW Coeff of Dina 14.2 Plt Count 128 L MPV 10.1 Immature Gran % (Auto) 0.900 Neut % (Auto) 41.7 L Lymph % (Auto) 54.8 H Porter % (Auto) 2.6 Eos % (Auto) 0.0 Baso % (Auto) 0.0 Absolute Neuts (auto) 1.0 L Absolute Lymphs (auto) 1.25 Nucleated RBC % 0 Diff Path Review May foll Fibrinogen D-Dimer Quant (PE/DVT) Sodium 132 L Potassium 3.7 Chloride 98 Carbon Dioxide 26.0 Anion Gap 8 BUN 27 H Creatinine 1.44 H Estim Creat Clear Calc 45.06 Est GFR (MDRD) Af Amer 61 Est GFR (MDRD) Non-Af 51 L BUN/Creatinine Ratio 18.8 Glucose 110 H Lactic Acid Calcium 8.0 L Total Bilirubin 0.40 AST 49 H ALT 41 Alkaline Phosphatase 50 Lactate Dehydrogenase Total Creatine Kinase Troponin I High Sens 29 C-React Prot Ext Range B-Natriuretic Peptide 118.3 H Total Protein 9.9 H Albumin 2.5 L Globulin 7.4 H Albumin/Globulin Ratio 0.3 L Procalcitonin 06/12/21 06/12/21 06/12/21 07:21 07:21 07:21 WBC RBC Hgb Hct MCV MCH MCHC RDW Std Deviation RDW Coeff of Dina Plt Count MPV Immature Gran % (Auto) Neut % (Auto) Lymph % (Auto) Porter % (Auto) Eos % (Auto) Baso % (Auto) Absolute Neuts (auto) Absolute Lymphs (auto) Nucleated RBC % Diff Path Review Fibrinogen 565 H D-Dimer Quant (PE/DVT) 7.12 H* Sodium Potassium Chloride Carbon Dioxide Anion Gap BUN Creatinine Estim Creat Clear Calc Est GFR (MDRD) Af Amer Est GFR (MDRD) Non-Af BUN/Creatinine Ratio Glucose Lactic Acid Calcium Total Bilirubin AST ALT Alkaline Phosphatase Lactate Dehydrogenase 247 H Total Creatine Kinase 349 H Troponin I High Sens C-React Prot Ext Range 76.90 H B-Natriuretic Peptide Total Protein Albumin Globulin Albumin/Globulin Ratio Procalcitonin 0.26 H 06/12/21 08:02 WBC RBC Hgb Hct MCV MCH MCHC RDW Std Deviation RDW Coeff of Dina Plt Count MPV Immature Gran % (Auto) Neut % (Auto) Lymph % (Auto) Porter % (Auto) Eos % (Auto) Baso % (Auto) Absolute Neuts (auto) Absolute Lymphs (auto) Nucleated RBC % Diff Path Review Fibrinogen D-Dimer Quant (PE/DVT) Sodium Potassium Chloride Carbon Dioxide Anion Gap BUN Creatinine Estim Creat Clear Calc Est GFR (MDRD) Af Amer Est GFR (MDRD) Non-Af BUN/Creatinine Ratio Glucose Lactic Acid 1.1 Calcium Total Bilirubin AST ALT Alkaline Phosphatase Lactate Dehydrogenase Total Creatine Kinase Troponin I High Sens C-React Prot Ext Range B-Natriuretic Peptide Total Protein Albumin Globulin Albumin/Globulin Ratio Procalcitonin Radiography Diagnostic Testing: Clinical Impression(s) from Imaging Studies Chest X-Ray 06/12/21 08:08 IMPRESSION: Extensive bilateral pneumonia. Electronically Signed: Niles Killian MD at 9:01 EST Tel , Service support , Chest CTA 06/12/21 08:40 IMPRESSION: 1. No pulmonary embolism 2. Acute Covid pneumonia. Electronically Signed: Niles Killian MD at 9:53 EST Tel , Service support , EKG Initial EKG: Attestation: I personally reviewed and interpreted this EKG as follows: Comments: Sinus rhythm with PACs with a ventricular rate of 86 bpm Discharge Plan Dx/Rx/DC Orders Clinical Impression: COVID-19, Acute hypoxemic respiratory failure due to COVID-19 Disposition Disposition: Acute Care Hospital [facility]
[2021-06-12 08:00] LABS: Absolute Lymphocyte Count 1.25 X10^3/uL (0.83-4.51); Hematocrit 27.8 % (40-54); Hemoglobin 9.7 g/dL (13.0-16.5); Lymphocyte # 1.25 X10^3/ul (0.83-4.51); Lymphocyte % 54.8 % (19-41); Mean Corp Hgb Conc 34.9 g/dL (32-36); Mean Corpuscular Hgb 35.3 pg (27.0-32.0); Mean Corpuscular Volume 101.1 fL (80-94); Mean Platelet Vol. 10.1 fl (6.2-12.0); Monocyte# 0.06 X10^3/uL; Monocyte% 2.6 % (0-10); NRBC Flagged by Analyzer 0 % (0-5); Neutrophil # 0.95 X10^3/uL (2.7-7.7); Neutrophil % 41.7 % (47-70); POSITIVE DIFFERENTIAL YES; POSITIVE MORPHOLOGY YES; Platelet Count 128 K/mm3 (150-450); RBC Distribution Width CV 14.2 % (11.6-14.6); RBC Distribution Width SD 52.8 fl (35.1-43.9); Red Blood Count 2.75 M/mm3 (4.6-6.2); White Blood Count 2.3 K/mm3 (4.4-11.0)
[2021-06-12 08:01] LABS: Differential Indicated SCAN CRITERIA MET
[2021-06-12] MEDS: Acetaminophen 500 MG Tablet 1000 MG PO (08:06)
--- NOTE | 2021-06-12 08:08 | RAD_ITS ---
STUDY: X-RAY CHEST REASON FOR EXAM: Male, 76 years old. cough confusion recent pneumonia diagnosis TECHNIQUE: Frontal portable view of the chest COMPARISON: and May 2021 FINDINGS: There is extensive bilateral pneumonia. There is no pneumothorax, cardiomegaly or moderate/large pleural effusions. There are probably small bilateral effusions. RAD/Chest 1 View (Portable) IMPRESSION: Extensive bilateral pneumonia. Electronically Signed: Niles Killian MD at 9:01 EST Tel , Service support ,
[2021-06-12 08:19] LABS: ALB/GLOB Ratio 0.3 RATIO (0.9-2.4); AST(SGOT) 49 U/L (15-37); Alanine Aminotransfer ALT/SGPT 41 U/L (16-61); Albumin, Serum 2.5 g/dL (3.2-5.0); Alkaline Phosphatase 50 U/L (45-117); Anion Gap 8 (5-15); BUN 27 mg/dL (7-18); BUN/Creat Ratio 18.8 RATIO (10-20); Chloride 98 mmol/L (98-107); Creatinine, Serum 1.44 mg/dL (0.70-1.30); EST Glomerular Filtration Rate 51 mL/min (>60); Est Glom Filt Rate - Afr Amer 61 mL/min (>60); Estimated Creatinine Clearance 45.06 ml/min; Globulin 7.4 g/dL (2.2-4.2); Glucose 110 mg/dL (74-106); Potassium 3.7 mmol/L (3.5-5.1); Protein, Total 9.9 g/dL (6.4-8.2); Sodium Level 132 mmol/L (136-145); Troponin-I HS 29 pg/mL (3.0-78.0)
[2021-06-12 08:26] LABS: BNP,B-Type NATRIURETIC PEPTIDE 118.3 pg/mL (0-100)
--- NOTE | 2021-06-12 08:40 | CT_ITS ---
STUDY: CTA CHEST REASON FOR EXAM: Male, 76 years old. Pneumonia confusion pulmonary embolism evaluation shortness of breath RADIATION DOSAGE (If Supplied By Facility): CTDIvol = ( 12.45 ) mGy, DLP = ( 405 ) mGycm TECHNIQUE: The examination was performed with the intravenous administration of IV 100mL Isovue-370. Post-processing of the angiographic images was performed, with multiplanar reformation and 3D reconstruction. Individualized dose optimization techniques were used for this CT. COMPARISON: None. FINDINGS: There is no acute or chronic pulmonary embolism. Aorta is of normal caliber. There is multifocal Covid pneumonia. There is no pneumothorax, pulmonary edema or pleural effusions. Mediastinal contents are normal. Osseous structures are intact. There is a large simple right renal cyst present since [address]/CTA Chest W/WO Contrast IMPRESSION: 1. No pulmonary embolism 2. Acute Covid pneumonia. Electronically Signed: Niels Killian MD at 9:53 EST Tel , Service support ,
[2021-06-12 08:46] LABS: Lactic Acid 1.1 mmol/L (0.4-1.9)
[2021-06-12 08:53] LABS: Fibrinogen 565 mg/dl (203-444)
[2021-06-12 09:04] LABS: CPK Total, Creatine Kinase 349 U/L (39-308); LDH 247 U/L (87-241)
[2021-06-12] MEDS: dexAMETHasone 4 MG Tablet 6 MG PO (09:08)
[2021-06-12 09:10] LABS: D-Dimer Quantitative (DVT/PE) 7.12 FEU/ug/m (0.27-0.49)
[2021-06-12 09:11] LABS: Procalcitonin 0.26 ng/mL (0.00-0.09)
--- NOTE | 2021-06-12 09:12 | ED.RN ---
d-dimer reported to this nurse by lab. this nurse reported to dr. coronel.
--- NOTE | 2021-06-12 10:11 | NURSING ---
DR MACHADO FOR DR GARCIA
--- NOTE | 2021-06-12 10:14 | NURSING ---
MED SURG JEANNETTE MALDONADO 19
--- NOTE | 2021-06-12 12:43 | HP.PCM.HOS_ITS ---
HPI - General General Date of Admission: 06/12/21 HPI Narrative FRANSISCO SILVERIO, is a 76 M who presents to the hospital with worsening shortness of breath and altered mental status. He cannot provide much history other than knowing that he is in [place] is. Most of the history was obtained from chart review as the family is no longer at bedside. Per the ER note, he started having Covid-like symptoms about 12 days ago when he started having a cough. At that time he was seen at an urgent care where they said that he had bilateral pneumonia and placed on cefdinir and azithromycin at that time he declined having a Covid test. He is unvaccinated. Over the last 12 days he has become a little bit more confused and more short of breath, EMS was called and he was found to be hypoxic on their evaluation. When he brought him into the hospital he did have bilateral pneumonia and a Covid test did come back positive. He was 86% on room air and therefore started on oxygen he was ultimately titrated up to about 9 L in the ER and he is currently down to 6 L here in the floor. He has significantly elevated D-dimer therefore CTA of the chest was obtained which was negative for any pulmonary embolisms. [facility] Medical History (Updated 06/12/21 @ 14:[address] Franklin Edmond MD) BPH (benign prostatic hyperplasia) Edema GERD (gastroesophageal reflux disease) History of stress test Macular degeneration of left eye Macular degeneration of right eye Non-smoker Pancreatitis Restless legs Umbilical hernia without obstruction or gangrene Urinary retention Wears glasses Home Medications azithromycin 250 mg tablet See Rx Instructions PO .COMPLEX #6 tab 06/09/21 [Rx Last Taken Unknown] cefdinir 300 mg capsule 300 mg PO BID #10 cap 06/09/21 [Rx Last Taken Unknown] guaifenesin 1,200 mg tablet, extended release 12 hr 1,200 mg PO BID PRN #20 tab 06/09/21 [Rx Last Taken Unknown] Allergy/AdvReac Type Severity Reaction Status Date / Time Penicillins Allergy Rash Verified 06/12/21 07:53 prednisolone Allergy Rash Verified 06/12/21 07:53 Family History (Updated 11/17/18 @ 10:29 by Shazia Handy) Father Rheumatoid arthritis CHF (congestive heart failure) Surgical History History of cholecystectomy History of colonoscopy History of prostate surgery History of umbilical hernia repair (~05/2018) S/P laparoscopic cholecystectomy Social History Smoking Status: Never smoker alcohol intake: never substance use type: does not use what type of physical activity do you participate in: none ROS Constitutional Constitutional: Reports chills and fever(s); Denies fatigue or malaise Eyes Eyes: Denies blurry vision ENT HEENT: Denies headache(s) or nasal discharge Cardiovascular Cardiovascular: Denies chest pain, dyspnea on exertion or syncope Respiratory/Chest Respiratory/Chest: Reports cough and shortness of breath at rest; Denies shortness of breath with exertion Gastrointestinal Gastrointestinal: Denies constipation, diarrhea, nausea or vomiting Genitourinary Genitourinary: Denies dysuria Neurologic Neurologic: Denies focal weakness, numbness or tremor(s) Psychiatric Psychiatric: Denies anxiety or depression Vital Signs Vital Signs Vital Signs: 06/12/21 07:45 06/12/21 08:21 06/12/21 08:40 Temperature 102.8 F H 102.8 F H Temperature Source Oral Oral Pulse Rate 88 86 Respiratory Rate 28 H 38 H Respiratory Effort Short of Breath Respiratory Depth Respiratory Pattern Tachypnea Blood Pressure 120/63 128/58 H Blood Pressure Mean 82 81 Blood Pressure Source Blood Pressure Position Blood Pressure Location Pulse Ox 84 91 86 Oxygen Delivery Method Room Air Nasal Cannula High Flow Oxygen Flow Rate (L/min) 7 7 06/12/21 08:42 06/12/21 09:14 06/12/21 10:22 Temperature 98.6 F 98.3 F Temperature Source Oral Oral Pulse Rate 85 77 73 Respiratory Rate 26 H 29 H 30 H Respiratory Effort Respiratory Depth Respiratory Pattern Blood Pressure 132/67 H 126/66 H 139/68 H Blood Pressure Mean 88 86 91 Blood Pressure Source Blood Pressure Position Blood Pressure Location Pulse Ox 96 96 96 Oxygen Delivery Method High Flow High Flow High Flow Oxygen Flow Rate (L/min) 9 9 9 06/12/21 11:58 06/12/21 12:09 Temperature 98.4 F Temperature Source Oral Pulse Rate 66 Respiratory Rate 18 Respiratory Effort Normal Non-Labored Respiratory Depth Normal Respiratory Pattern Normal Blood Pressure 128/67 H Blood Pressure Mean 87 Blood Pressure Source Monitor Blood Pressure Position Semi-Fowlers Blood Pressure Location Left Arm Pulse Ox 97 Oxygen Delivery Method Nasal Cannula Nasal Cannula Oxygen Flow Rate (L/min) 9 9 Weight Weight: 222 lb 10.67 oz Body Mass Index (BMI) 31.9 Physical Exam Const alert and no apparent distress General Appearance: cooperative Orientation / Consciousness: oriented to person and oriented to place HEENT normocephalic Mouth: dry mucous membranes Eyes PERRL, EOMs intact bilaterally and conjunctivae normal Neck supple and no JVD Resp normal respiratory effort, no retractions and no use of accessory muscles Auscultation: crackles; Negative for rales, rhonchi or wheezes Cardio regular rate, regular rhythm, S1 normal heart sound, S2 normal heart sound and no murmurs GI soft to palpation, non-tender and non-distended; Negative for hepatosplenomegaly Extremity no clubbing, cyanosis or edema Skin no rashes or lesions noted Neuro no focal motor deficits and no sensory deficits noted Psych affect normal Appearance: appropriate Results Medical Records Data Medical Nutrition Assessment Dietitian: Malnutrition Criteria Met Start: 06/12/21 12:20 Freq: Status: Active Protocol: Document 06/12/21 12:20 RMA (Rec: 06/12/21 12:20 RMA [id number]) Nutrition Malnutrition Evidence of Malnutrition Exists Yes Malnutrition (severe): Acute Illness/Injury Evidenced By Suboptimal Energy Intake ( Severe),Weight Loss (Severe) Clinical Problem Acute Disease or Injury Related Malnutrition Etiology Severe protein-calorie malnutrition in the context of acute illness related to inadequate oral intake Signs/Symptoms as evidenced by ~3% wt loss x past 1-2 weeks and PO meeting less than 50-75% estimated nutrition needs since onset of illness x 12 days Status Active Problem Recommendation Dietitian Recommendations/Changes Continue regular diet as ordered. Will d/c ensure enlive w/ medpass and offer ensure compact TID w/ meals instead. Lab / Micro Data Result Diagrams: 06/12/21 07:21 06/12/21 07:21 Labs: Laboratory Results - last 24 hr 06/12/21 07:21: WBC 2.3 L, RBC 2.75 L, Hgb 9.7 L, Hct 27.8 L, MCV 101.1 H, MCH 35.3 H, MCHC 34.9, RDW Std Deviation 52.8 H, RDW Coeff of Dina 14.2, Plt Count 128 L, MPV 10.1, Immature Gran % (Auto) 0.900, Neut % (Auto) 41.7 L, Lymph % (Auto) 54.8 H, Surry % (Auto) 2.6, Eos % (Auto) 0.0, Baso % (Auto) 0.0, Absolute Neuts (auto) 1.0 L, Absolute Lymphs (auto) 1.25, Nucleated RBC % 0, Diff Path Review November06/12/21 07:21: Sodium 132 L, Potassium 3.7, Chloride 98, Carbon Dioxide 26.0, Anion Gap 8, BUN 27 H, Creatinine 1.44 H, Estim Creat Clear Calc 45.06, Est GFR (MDRD) Af Amer 61, Est GFR (MDRD) Non-Af 51 L, BUN/Creatinine Ratio 18.8, Glucose 110 H, Calcium 8.0 L, Total Bilirubin 0.40, AST 49 H, ALT 41, Alkaline Phosphatase 50, Troponin I High Sens 29, Total Protein 9.9 H, Albumin 2.5 L, Globulin 7.4 H, Albumin/Globulin Ratio 0.3 L 06/12/21 07:21: B-Natriuretic Peptide 118.3 H 06/12/21 07:21: Fibrinogen 565 H, D-Dimer Quant (PE/DVT) 7.12 H* 06/12/21 07:21: Lactate Dehydrogenase 247 H, Total Creatine Kinase 349 H, C- React Prot Ext Range 76.90 H 06/12/21 07:21: Procalcitonin 0.26 H 06/12/21 08:02: Lactic Acid 1.1 Micro: Microbiology 06/12/21 07:48 Nasal Secretion SARS-CoV-2 Antigen (Rapid) - Final SARS-CoV-2 (COVID 19) Radiology Impression Chest X-Ray 06/12/21 08:08 IMPRESSION: Extensive bilateral pneumonia. Electronically Signed: Niles Killian MD at 9:01 EST Tel , Service support , Chest CTA 06/12/21 08:40 IMPRESSION: 1. No pulmonary embolism 2. Acute Covid pneumonia. Electronically Signed: Niles Killian MD at 9:53 EST Tel , Service support , Assessment & Plan Assessment/Plan (1) Acute hypoxemic respiratory failure due to COVID-19: (2) Metabolic encephalopathy: PLAN: #1. Acute hypoxic respiratory failure secondary to COVID-19 pneumonia/metabolic encephalopathy ?We will continue with Decadron, he is outside the window for remdesivir ?He does have crackles however his creatinine is elevated to 1.44 therefore we will monitor and if it does trend down tomorrow may provide him with some Lasix at that time ?Continue with nasal cannula, currently at 6 L if he does get worse we will consult infectious disease for baricitinib ?CTA was negative for PEs however given how high the D-dimer is, will place him on twice daily prophylactic Lovenox DVT: Lovenox Charges/Coding Visit Charges Inpatient E&M: 09047 Init Hosp L2
--- NOTE | 2021-06-12 19:52 | NURSING ---
Pt refusing lovenox. This nurse explained the use and benefits and also explained the risks of not taking lovenox. Pt verbalizes understanding, still refuses lovenox.
[2021-06-13 02:00] VITALS: BP 136/80; PULSE 55; RESP 16; TEMP 36; O2SAT 95
--- NOTE | 2021-06-13 07:23 | PCS.PANDOC ---
PANDEMIC DOCUMENTATION INITIATED: Date: 03/03/2021 Time: 190
[2021-06-13 07:25] LABS: Absolute Lymphocyte Count 1.29 X10^3/uL (0.83-4.51); Hematocrit 30.5 % (40-54); Hemoglobin 10.2 g/dL (13.0-16.5); Lymphocyte # 1.29 X10^3/ul (0.83-4.51); Lymphocyte % 37.7 % (19-41); Mean Corp Hgb Conc 33.4 g/dL (32-36); Mean Corpuscular Hgb 34.8 pg (27.0-32.0); Mean Corpuscular Volume 104.1 fL (80-94); Mean Platelet Vol. 10.1 fl (6.2-12.0); Monocyte# 0.07 X10^3/uL; NRBC Flagged by Analyzer 0 % (0-5); Neutrophil # 2.03 X10^3/uL (2.7-7.7); Neutrophil % 59.4 % (47-70); POSITIVE MORPHOLOGY YES; Platelet Count 129 K/mm3 (150-450); RBC Distribution Width CV 14.1 % (11.6-14.6); RBC Distribution Width SD 53.6 fl (35.1-43.9); Red Blood Count 2.93 M/mm3 (4.6-6.2); White Blood Count 3.4 K/mm3 (4.4-11.0)
[2021-06-13 07:27] LABS: Differential Indicated SCAN CRITERIA MET
[2021-06-13 07:39] LABS: Anion Gap 7 (5-15); BUN 31 mg/dL (7-18); BUN/Creat Ratio 25.6 RATIO (10-20); Calcium,Total 8.9 mg/dL (8.5-10.1); Chloride 104 mmol/L (98-107); Creatinine, Serum 1.21 mg/dL (0.70-1.30); EST Glomerular Filtration Rate 62 mL/min (>60); Est Glom Filt Rate - Afr Amer 75 mL/min (>60); Estimated Creatinine Clearance 53.63 ml/min; Glucose 149 mg/dL (74-106); Potassium 3.9 mmol/L (3.5-5.1); Sodium Level 137 mmol/L (136-145)
--- NOTE | 2021-06-13 10:35 | PCM.PN.HOSP ---
Subjective Subjective States that he feels little bit better today, oxygen requirements are about the same. Objective Data Objective Data Vital Signs: Vital Signs Temp Pulse Resp BP Pulse Ox 96.8 F L 55 L 16 136/80 H 95 06/13/21 02:00 06/13/21 02:00 06/13/21 02:00 06/13/21 02:00 06/13/21 02:00 Oxygen Flow Rate (L/min) 5 Oxygen Delivery Method Nasal Cannula Weight: 224 lb 10.417 oz Body Mass Index (BMI) 31.9 Intake & Output: Intake and Output for Last 24 Hours 06/12/21 06/13/21 06/14/21 03:59 03:59 03:59 Output Total 1750 / 1750 Balance -1750 / -1750 Medical Nutrition Assessment Dietitian: Malnutrition Criteria Met Start: 06/12/21 12:20 Freq: Status: Active Protocol: Document 06/12/21 12:20 RMA (Rec: 06/12/21 12:20 RMA [id number]) Nutrition Malnutrition Evidence of Malnutrition Exists Yes Malnutrition (severe): Acute Illness/Injury Evidenced By Suboptimal Energy Intake ( Severe),Weight Loss (Severe) Clinical Problem Acute Disease or Injury Related Malnutrition Etiology Severe protein-calorie malnutrition in the context of acute illness related to inadequate oral intake Signs/Symptoms as evidenced by ~3% wt loss x past 1-2 weeks and PO meeting less than 50-75% estimated nutrition needs since onset of illness x 12 days Status Active Problem Recommendation Dietitian Recommendations/Changes Continue regular diet as ordered. Will d/c ensure enlive w/ medpass and offer ensure compact TID w/ meals instead. Lab / Micro Data Result Diagrams: 06/13/21 07:05 06/13/21 07:05 Labs: Laboratory Results - last 24 hr 06/13/21 07:05: WBC 3.4 L, RBC 2.93 L, Hgb 10.2 L, Hct 30.5 L, MCV 104.1 H, MCH 34.8 H, MCHC 33.4, RDW Std Deviation 53.6 H, RDW Coeff of Dina 14.1, Plt Count 129 L, MPV 10.1, Immature Gran % (Auto) 0.900, Neut % (Auto) 59.4, Lymph % (Auto) 37.7, [place] % (Auto) 2.0, Eos % (Auto) 0.0, Baso % (Auto) 0.0, Absolute Neuts (auto) 2.0, Absolute Lymphs (auto) 1.29, Nucleated RBC % 0 06/13/21 07:05: Sodium 137, Potassium 3.9, Chloride 104, Carbon Dioxide 26.0, Anion Gap 7, BUN 31 H, Creatinine 1.21, Estim Creat Clear Calc 53.63, Est GFR (MDRD) Af Amer 75, Est GFR (MDRD) Non-Af 62, BUN/Creatinine Ratio 25.6 H, Glucose 149 H, Calcium 8.9 Micro: Microbiology 06/12/21 07:48 Nasal Secretion SARS-CoV-2 Antigen (Rapid) - Final SARS-CoV-2 (COVID 19) Physical Exam Const alert and no apparent distress General Appearance: cooperative Orientation / Consciousness: oriented to person and oriented to place HEENT normocephalic Eyes PERRL, EOMs intact bilaterally and conjunctivae normal Neck supple and no JVD Resp normal respiratory effort, no retractions and no use of accessory muscles Auscultation: crackles; Negative for rales, rhonchi or wheezes Cardio regular rate, regular rhythm, S1 normal heart sound, S2 normal heart sound and no murmurs GI soft to palpation, non-tender and non-distended; Negative for hepatosplenomegaly Extremity no clubbing, cyanosis or edema Skin no rashes or lesions noted Neuro no focal motor deficits and no sensory deficits noted Psych affect normal Appearance: appropriate Assessment & Plan Assessment/Plan (1) Acute hypoxemic respiratory failure due to COVID-19: (2) Metabolic encephalopathy: PLAN: 1. Acute hypoxic respiratory failure secondary to COVID-19 pneumonia/metabolic encephalopathy ?We will continue with Decadron, he is outside the window for remdesivir ?He does have crackles however his creatinine is elevated to 1.44 patient, his creatinine has improved therefore we will trial him on some Lasix ?Continue with nasal cannula, currently at 5 L if he does get worse we will consult infectious disease for baricitinib ?CTA was negative for PEs however given how high the D-dimer is, will place him on twice daily prophylactic Lovenox ?We will continue to encourage incentive spirometry and Pep therapy DVT: Lovenox Charges/Coding Visit Charges Inpatient E&M: 01003 Subs Hosp L2
[2021-06-13 11:14] VITALS: BP 127/76; PULSE 70; RESP 18; TEMP 35.9; O2SAT 95
[2021-06-13] MEDS: Enoxaparin 40 MG/0.4 ML Syringe SC ×2 (11:18→20:49)
[2021-06-13] MEDS: Furosemide 20 MG/2 ML VIAL IV (11:18)
[2021-06-13] MEDS: dexAMETHasone 4 MG Tablet 6 MG PO (11:19)
[2021-06-13 11:55] VITALS: O2SAT 95
--- NOTE | 2021-06-13 12:40 | CASEMGMT ---
KELSEY RODRÍGUEZ INSURANCE SALES PROFESSIONAL CM to room to meet with patient for initial transition planning/care coordination assessment. KELSEY RODRÍGUEZ introduced self and role at [facility]. Pt voices understanding and consents to assessment at this time. Pt resting in bed in no distress at this time. Pt is A/O at this time and answers all questions appropriately. Care providers, pharmacy, and demographics verified/updated at this time. COVID testing done @ [facility]. PCP: Dr Parks Specialists: Dr Moody--urology Preferred Pharmacy: [facility] Retail [place] [facility] [place] None LNOK: , Crystal. 3 adult children. Living Arrangements: Lives w/ in 2-story home w/2 steps to enter. Can do FFSU if needed. Independent prior to illness. Son and dtr-in-law live next door and are supportive--able to get groceries and supplies as needed. has not been ill. Discussed importance of self-isolating when returning home. Pt states his has already had COVID--last year. Educated pt that can get COVID again and on importance of still self isolating to prevent re-infection. He voices understanding. He states they have several bedrooms and 3 bathrooms and they will be able to do that. Transportation: Hire drivers DME: States has the following DME: Cane and pulse ox. Does not have Home O2. Has solar system to generate electricity. Provided w/list of local DME companies. Pt does not have preference. Made aware cost for 30-day supply of O2 is approx $200. Pt states this is affordable. Denies need for other DME. HHC/SNF: No hx of either. Denies need for HHC. Pt wishes to return home and states has no concerns with going home at time of discharge. CM to follow for home oxygen needs and any further discharge planning/needs. Pt voices no further concerns/needs at this time. Advised pt to ask for CM if any further questions/concerns/needs arise. Voices understanding. PLAN: Home w/family support and discharge plans in place. Follow for any home oxygen needs @ discharge. Leora MARCELINO RN, CM
--- NOTE | 2021-06-13 14:33 | CASEMGMT ---
Green sheet left on chart for home oxygen, if pt qualifies at discharge. SStcele COLE CM
[2021-06-13 14:46] VITALS: O2SAT 93
[2021-06-13 15:34] LABS: Pathologist Review Reviewed
[2021-06-13 15:49] VITALS: BP 124/64; PULSE 70; RESP 18; TEMP 36.1; O2SAT 96
[2021-06-13] MEDS: 0.9% Saline Lock 10 ML Syringe IV (20:49)
[2021-06-13 21:45] VITALS: BP 128/73; PULSE 80; RESP 18; TEMP 36.4; O2SAT 94
[2021-06-14] VITALS (8 sets, daily range): BP systolic 123–143; BP diastolic 73–83; PULSE 68–77; RESP 16–19; TEMP 36.6–37.1; O2SAT 90–96
[2021-06-14 07:23] LABS: Absolute Neutrophil Count 3.1 X10^3/uL (2.0-7.7); Basophil# 0.01 X10^3/uL; Basophil% 0.2 % (0-1); Hematocrit 28.5 % (40-54); Hemoglobin 9.4 g/dL (13.0-16.5); Lymphocyte % 23.5 % (19-41); Mean Corpuscular Hgb 34.8 pg (27.0-32.0); Mean Corpuscular Volume 105.6 fL (80-94); Mean Platelet Vol. 10.4 fl (6.2-12.0); Monocyte# 0.08 X10^3/uL; Monocyte% 1.9 % (0-10); NRBC Flagged by Analyzer 0 % (0-5); Neutrophil # 3.13 X10^3/uL (2.7-7.7); Neutrophil % 73.5 % (47-70); POSITIVE MORPHOLOGY YES; Platelet Count 152 K/mm3 (150-450); RBC Distribution Width CV 14.3 % (11.6-14.6); RBC Distribution Width SD 55.2 fl (35.1-43.9); White Blood Count 4.3 K/mm3 (4.4-11.0)
[2021-06-14 07:24] LABS: Differential Indicated SCAN CRITERIA MET
[2021-06-14 07:56] LABS: Anion Gap 6 (5-15); BUN 39 mg/dL (7-18); BUN/Creat Ratio 33.9 RATIO (10-20); Calcium,Total 8.5 mg/dL (8.5-10.1); Chloride 103 mmol/L (98-107); Creatinine, Serum 1.15 mg/dL (0.70-1.30); EST Glomerular Filtration Rate 66 mL/min (>60); Est Glom Filt Rate - Afr Amer 80 mL/min (>60); Estimated Creatinine Clearance 56.43 ml/min; Glucose 136 mg/dL (74-106); Sodium Level 134 mmol/L (136-145)
[2021-06-14] MEDS: dexAMETHasone 4 MG Tablet 6 MG PO (08:06)
[2021-06-14] MEDS: Enoxaparin 40 MG/0.4 ML Syringe SC ×2 (08:06→20:18)
--- NOTE | 2021-06-14 12:58 | PN.HOSP_ITS ---
Subjective Subjective Feeling better, still maintaining his oxygen saturations on 4 L nasal cannula, will obtain an ambulatory pulse ox today Objective Data Objective Data Vital Signs: Vital Signs Temp Pulse Resp BP Pulse Ox 98.7 F 77 18 139/81 H 92 06/14/21 08:04 06/14/21 08:04 06/14/21 08:04 06/14/21 08:04 06/14/21 12:19 Oxygen Flow Rate (L/min) 4 Oxygen Delivery Method Nasal Cannula Weight: 224 lb 3.362 oz Body Mass Index (BMI) 31.9 Intake & Output: Intake and Output for Last 24 Hours 06/13/21 06/14/21 06/15/21 03:59 03:59 03:59 Intake Total 240 / 240 60 / 60 Output Total 1750 / 1750 300 / 300 Balance -1750 / -1750 240 / 240 -240 / -240 Medical Nutrition Assessment Dietitian: Malnutrition Criteria Met Start: 06/12/21 12:20 Freq: Status: Active Protocol: Document 06/12/21 12:20 RMA (Rec: 06/12/21 12:20 RMA [id number]) Nutrition Malnutrition Evidence of Malnutrition Exists Yes Malnutrition (severe): Acute Illness/Injury Evidenced By Suboptimal Energy Intake ( Severe),Weight Loss (Severe) Clinical Problem Acute Disease or Injury Related Malnutrition Etiology Severe protein-calorie malnutrition in the context of acute illness related to inadequate oral intake Signs/Symptoms as evidenced by ~3% wt loss x past 1-2 weeks and PO meeting less than 50-75% estimated nutrition needs since onset of illness x 12 days Status Active Problem Recommendation Dietitian Recommendations/Changes Continue regular diet as ordered. Will d/c ensure enlive w/ medpass and offer ensure compact TID w/ meals instead. Lab / Micro Data Result Diagrams: 06/14/21 06:48 06/14/21 06:48 Labs: Laboratory Results - last 24 hr 06/12/21 07:21: Diff Path Review Reviewed 06/14/21 06:48: WBC 4.3 L, RBC 2.70 L, Hgb 9.4 L, Hct 28.5 L, MCV 105.6 H, MCH 3 4.8 H, MCHC 33.0, RDW Std Deviation 55.2 H, RDW Coeff of Dina 14.3, Plt Count 152, MPV 10.4, Immature Gran % (Auto) 0.900, Neut % (Auto) 73.5 H, Lymph % (Auto) 23.5, [place] % (Auto) 1.9, Eos % (Auto) 0.0, Baso % (Auto) 0.2, Absolute Neuts (auto) 3.1, Absolute Lymphs (auto) 1.00, Nucleated RBC % 0 06/14/21 06:48: Sodium 134 L, Potassium 4.0, Chloride 103, Carbon Dioxide 25.0, Anion Gap 6, BUN 39 H, Creatinine 1.15, Estim Creat Clear Calc 56.43, Est GFR (MDRD) Af Amer 80, Est GFR (MDRD) Non-Af 66, BUN/Creatinine Ratio 33.9 H, Glucose 136 H, Calcium 8.5 Micro: Microbiology 06/12/21 08:05 Blood Culture (Wb) - Anticubital Right Bacteria Detection (PCR) - Final 06/12/21 08:05 Blood Culture (Wb) - Anticubital Right Blood Culture - Preliminary Presumptive Micrococcus spp. 06/12/21 08:02 Blood Culture (Wb) - Anticubital Left Blood Culture - Preliminary No growth in 48 hours. 06/12/21 07:48 Nasal Secretion SARS-CoV-2 Antigen (Rapid) - Final SARS-CoV-2 (COVID 19) Physical Exam Const alert and no apparent distress General Appearance: cooperative Orientation / Consciousness: oriented to person and oriented to place HEENT normocephalic Eyes PERRL, EOMs intact bilaterally and conjunctivae normal Neck supple and no JVD Resp normal respiratory effort, no retractions and no use of accessory muscles Auscultation: diminished lung sounds; Negative for crackles, rales, rhonchi or wheezes Cardio regular rate, regular rhythm, S1 normal heart sound, S2 normal heart sound and no murmurs GI soft to palpation, non-tender and non-distended; Negative for hepatosplenomegaly Extremity no clubbing, cyanosis or edema Skin no rashes or lesions noted Neuro no focal motor deficits and no sensory deficits noted Psych affect normal Appearance: appropriate Assessment & Plan Assessment/Plan (1) Acute hypoxemic respiratory failure due to COVID-19: (2) Metabolic encephalopathy: PLAN: 1. Acute hypoxic respiratory failure secondary to COVID-19 pneumonia/metabolic encephalopathy ?We will continue with Decadron, he is outside the window for remdesivir ?Cannot hear crackles on exam therefore we will hold off on any Lasix today ?Continue with nasal cannula, currently at 4 L if he does get worse we will consult infectious disease for baricitinib ?Plan for ambulatory pulse ox today ?CTA was negative for PEs however given how high the D-dimer is, will place him on twice daily prophylactic Lovenox ?We will continue to encourage incentive spirometry and Pep therapy ?1 out of 4 blood cultures with micrococcus, which is a contaminant DVT: Lovenox Charges/Coding Visit Charges Inpatient E&M: 01519 Subs Hosp L2
[2021-06-15 03:17] VITALS: BP 123/62; PULSE 70; RESP 16; TEMP 36.7; O2SAT 94
[2021-06-15 04:32] VITALS: O2SAT 94
[2021-06-15 07:15] VITALS: O2SAT 87; O2SAT 90; O2SAT 91
[2021-06-15 08:22] VITALS: BP 145/86; PULSE 67; RESP 18; TEMP 37.2; O2SAT 92
[2021-06-15] MEDS: Enoxaparin 40 MG/0.4 ML Syringe SC ×2 (08:23→20:42)
[2021-06-15] MEDS: dexAMETHasone 4 MG Tablet 6 MG PO (08:23)
[2021-06-15 09:49] LABS: Anion Gap 4 (5-15); BUN 39 mg/dL (7-18); BUN/Creat Ratio 35.1 RATIO (10-20); Calcium,Total 8.7 mg/dL (8.5-10.1); Chloride 105 mmol/L (98-107); Creatinine, Serum 1.11 mg/dL (0.70-1.30); EST Glomerular Filtration Rate 68 mL/min (>60); Est Glom Filt Rate - Afr Amer 83 mL/min (>60); Estimated Creatinine Clearance 58.46 ml/min; Glucose 122 mg/dL (74-106); Potassium 4.2 mmol/L (3.5-5.1); Sodium Level 136 mmol/L (136-145)
--- NOTE | 2021-06-15 11:25 | PN.HOSP_ITS ---
Subjective Subjective Doing well, maintaining his oxygen saturations at rest on 4 L however with ambulation needed 6 today Objective Data Objective Data Vital Signs: Vital Signs Temp Pulse Resp BP Pulse Ox 98.9 F 67 18 145/86 H 92 06/15/21 08:22 06/15/21 08:22 06/15/21 08:22 06/15/21 08:22 06/15/21 08:22 Oxygen Flow Rate (L/min) [ 6 AMBULATING with Oxygen #2] Oxygen Flow Rate (L/min) [ 4 AMBULATING with Oxygen #1] Oxygen Flow Rate (L/min) [At 4 REST with Oxygen] Oxygen Flow Rate (L/min) 4 Oxygen Delivery Method Nasal Cannula Weight: 223 lb 1.725 oz Body Mass Index (BMI) 31.9 Intake & Output: Intake and Output for Last 24 Hours 06/14/21 06/15/21 06/16/21 03:59 03:59 03:59 Intake Total 240 / 240 860 / 860 200 / 200 Output Total 575 / 575 Balance 240 / 240 285 / 285 200 / 200 Medical Nutrition Assessment Dietitian: Malnutrition Criteria Met Start: 06/12/21 12:20 Freq: Status: Active Protocol: Document 06/12/21 12:20 RMA (Rec: 06/12/21 12:20 RMA [id number]) Nutrition Malnutrition Evidence of Malnutrition Exists Yes Malnutrition (severe): Acute Illness/Injury Evidenced By Suboptimal Energy Intake ( Severe),Weight Loss (Severe) Clinical Problem Acute Disease or Injury Related Malnutrition Etiology Severe protein-calorie malnutrition in the context of acute illness related to inadequate oral intake Signs/Symptoms as evidenced by ~3% wt loss x past 1-2 weeks and PO meeting less than 50-75% estimated nutrition needs since onset of illness x 12 days Status Active Problem Recommendation Dietitian Recommendations/Changes Continue regular diet as ordered. Will d/c ensure enlive w/ medpass and offer ensure compact TID w/ meals instead. Lab / Micro Data Result Diagrams: 06/14/21 06:48 06/15/21 08:57 Labs: Laboratory Results - last 24 hr 06/15/21 08:57: Sodium 136, Potassium 4.2, Chloride 105, Carbon Dioxide 27.0, An ion Gap 4 L, BUN 39 H, Creatinine 1.11, Estim Creat Clear Calc 58.46, Est GFR (MDRD) Af Amer 83, Est GFR (MDRD) Non-Af 68, BUN/Creatinine Ratio 35.1 H, Glucose 122 H, Calcium 8.7 Micro: Microbiology 06/12/21 08:05 Blood Culture (Wb) - Anticubital Right Bacteria Detection (PCR) - Final 06/12/21 08:05 Blood Culture (Wb) - Anticubital Right Blood Culture - Preliminary Presumptive Micrococcus spp. 06/12/21 08:02 Blood Culture (Wb) - Anticubital Left Blood Culture - Preliminary No growth in 48 hours. 06/12/21 07:48 Nasal Secretion SARS-CoV-2 Antigen (Rapid) - Final SARS-CoV-2 (COVID 19) Physical Exam Const alert and no apparent distress General Appearance: cooperative Orientation / Consciousness: oriented to person and oriented to place HEENT normocephalic Eyes PERRL, EOMs intact bilaterally and conjunctivae normal Neck supple and no JVD Resp normal respiratory effort, no retractions and no use of accessory muscles Auscultation: crackles and diminished lung sounds; Negative for rales, rhonchi or wheezes Cardio regular rate, regular rhythm, S1 normal heart sound, S2 normal heart sound and no murmurs GI soft to palpation, non-tender and non-distended; Negative for hepatosplenomegaly Extremity no clubbing, cyanosis or edema Skin no rashes or lesions noted Neuro no focal motor deficits and no sensory deficits noted Psych affect normal Appearance: appropriate Assessment & Plan Assessment/Plan (1) Acute hypoxemic respiratory failure due to COVID-19: (2) Metabolic encephalopathy: PLAN: 1. Acute hypoxic respiratory failure secondary to COVID-19 pneumonia/metabolic encephalopathy ?We will continue with Decadron, he is outside the window for remdesivir ?Continue with nasal cannula, currently at 4 L, needs 6 L with ambulation ?Given mild crackles, will trial him on Lasix today ?CTA was negative for PEs however given how high the D-dimer is, will place him on twice daily prophylactic Lovenox ?We will continue to encourage incentive spirometry and Pep therapy ?1 out of 4 blood cultures with micrococcus, which is a contaminant DVT: Lovenox Charges/Coding Visit Charges Inpatient E&M: 13112 Subs Hosp L2
[2021-06-15] MEDS: 0.9% Saline Lock 10 ML Syringe IV (11:52)
[2021-06-15] MEDS: Furosemide 20 MG/2 ML VIAL IV (11:52)
[2021-06-15 16:21] VITALS: BP 128/72; PULSE 64; RESP 18; TEMP 36.8; O2SAT 94
[2021-06-15 20:45] VITALS: BP 158/82; PULSE 70; RESP 16; TEMP 36.3; O2SAT 94
[2021-06-16] VITALS (8 sets, daily range): BP systolic 128–155; BP diastolic 70–81; PULSE 69–89; RESP 20; TEMP 36.3–36.8; O2SAT 85–95
[2021-06-16 07:02] LABS: Absolute Lymphocyte Count 0.99 X10^3/uL (0.83-4.51); Absolute Neutrophil Count 2.4 X10^3/uL (2.0-7.7); Eosinophil# 0.01 X10^3/uL; Eosinophils% 0.3 % (0-5); Hematocrit 27.5 % (40-54); Hemoglobin 9.3 g/dL (13.0-16.5); Lymphocyte # 0.99 X10^3/ul (0.83-4.51); Lymphocyte % 27.8 % (19-41); Mean Corp Hgb Conc 33.8 g/dL (32-36); Mean Corpuscular Hgb 35.5 pg (27.0-32.0); Mean Platelet Vol. 10.4 fl (6.2-12.0); Monocyte# 0.11 X10^3/uL; Monocyte% 3.1 % (0-10); NRBC Flagged by Analyzer 0 % (0-5); Neutrophil # 2.43 X10^3/uL (2.7-7.7); Neutrophil % 68.2 % (47-70); POSITIVE MORPHOLOGY YES; Platelet Count 151 K/mm3 (150-450); RBC Distribution Width CV 14.3 % (11.6-14.6); RBC Distribution Width SD 54.5 fl (35.1-43.9); Red Blood Count 2.62 M/mm3 (4.6-6.2); White Blood Count 3.6 K/mm3 (4.4-11.0)
[2021-06-16 07:04] LABS: Differential Indicated SCAN CRITERIA MET
[2021-06-16 07:24] LABS: Anion Gap 5 (5-15); BUN 37 mg/dL (7-18); BUN/Creat Ratio 35.6 RATIO (10-20); Calcium,Total 8.2 mg/dL (8.5-10.1); Chloride 102 mmol/L (98-107); Creatinine, Serum 1.04 mg/dL (0.70-1.30); EST Glomerular Filtration Rate 74 mL/min (>60); Est Glom Filt Rate - Afr Amer 89 mL/min (>60); Estimated Creatinine Clearance 62.39 ml/min; Glucose 144 mg/dL (74-106); Potassium 4.1 mmol/L (3.5-5.1); Sodium Level 134 mmol/L (136-145)
[2021-06-16] MEDS: Enoxaparin 40 MG/0.4 ML Syringe SC (10:05)
[2021-06-16] MEDS: dexAMETHasone 4 MG Tablet 6 MG PO (10:05)
--- NOTE | 2021-06-16 11:37 | CASEMGMT ---
Addendum entered by Maureen Hager 06/16/21 12:03: [place] [facility] [place] and that they do have Solar power at home, voices understanding and states they will be bringing e-tank for pt to go home. Kesha COLE CM Original Note: Pt qualifies for 4L at rest and 6L w/ exertion and pt had agreed to [facility] [place] but pt's family did call in asking about [facility]. Per [facility], they only have portable concentrators and do not do the home concentrators but they can rent out e-tanks, if necessary. Script faxed to [facility] as previously arranged and call to [facility] to notify. Pt is SBA in room and has family support at home. CM to follow. Kesha COLE CM
--- NOTE | 2021-06-16 15:02 | PCM.HOSP.N ---
Hospitalist Note Patient's pulse ox at rest without oxygen was 85%, his pulse ox at rest on 2 L via nasal cannula oxygen was 89%. Patient required 6 L of oxygen while ambulating to maintain his pulse ox of 92%. Patient will be set up for home O2, he is expected to use his oxygen inside his home and outside the home as instructed.
--- NOTE | 2021-06-16 15:06 | PCM.DC ---
Discharge Instructions Diet Discharge Diet: No restrictions Activity Discharge Activity: Return to Normal Activity Additional Activity Instructions:: Please quarantine for a total of 20 days from the time of your first Covid 19 symptoms Follow Up Care Test Results: Test results from this visit will be discussed in further detail at your follow-up appointment, if applicable. Discharge Plan Admission Admit Date/Time: 06/12/21 10:10 Primary Reason for Your Visit: COVID-19 pneumonia Attending Provider: Joshua Hitchcock Primary Care Provider: Otoniel Parks Instructions Additional Instructions / Restrictions: I recommend you received the Covid 19 vaccine in 2 months Quarantine for a total of 20 days after your first symptoms of COVID-19 Use oxygen at 6 L/min while ambulating, use oxygen at 2 L/min while at rest Discharge Orders/Prescriptions Prescriptions: New dexamethasone 2 mg tablet 6 mg PO DAILY Qty: 15 RF: 0 Discontinued azithromycin [Zithromax Z-Shimon] 250 mg tablet See Rx Instructions PO .COMPLEX Qty: 6 RF: 0 cefdinir 300 mg capsule 300 mg PO BID Qty: 10 RF: 0 Mucinex 1,200 mg tablet extended release 12hr 1,200 mg PO BID PRN (Reason: congestion) Qty: 20 RF: 0 Referrals / Follow Up: Otoniel Parks MD [Primary Care Provider] - In 1 Week Disposition Disposition (needs filled in before D/C Order can be placed): Home, Self Care
--- NOTE | 2021-06-16 15:15 | PCM.DC.SUM ---
Providers Date of Admission: 06/12/21 Date of Discharge: 06/16/21 Primary Care Physician: Dr. Otoniel Parks MD Reason For Visit: COVID PNEUMONIA Diagnosis Discharge Diagnosis (1) Acute hypoxemic respiratory failure due to COVID-19: Code(s): U07.1 - COVID-19; J96.01 - Acute respiratory failure with hypoxia (2) Metabolic encephalopathy: Code(s): G93.41 - Metabolic encephalopathy Plan: 1. COVID-19 pneumonia #2 acute hypoxic respiratory failure secondary to COVID-19 pneumonia #3 metabolic encephalopathy secondary to acute hypoxic respiratory failure due to COVID-19 infection #4 severe protein and caloric malnutrition in the context of acute illness related to inadequate oral intake as evidenced by a 3% weight loss times the past 1 to 2 weeks and p.o. meeting less than 50 to 75% of estimated nutritional needs since onset of illness x12 days, continue regular diet as ordered, offer Ensure compact 3 times daily with meals Medications at Discharge Home Medications dexamethasone 6 mg PO DAILY #15 tab 06/16/21 Hospital Course Operations None Procedures None Summary of Care Provided Minutes Spent on Discharge: 32 Hospital Course: This 76-year-old white male presented to the emergency room at [facility] with altered mental status and shortness of breath. Patient felt well approximately 12 days prior with a cough. He was placed on outpatient antibiotics for presumed bilateral pneumonia, patient declined his Covid testing at that time. Work-up in the emergency room included a Covid test which was positive, chest x-ray showed bilateral multifocal infiltrates consistent with COVID-19 pneumonia. Patient required nasal cannula oxygen at 9 L to stabilize his pulse ox. Patient's CTA of his chest was negative for pulmonary embolism, patient was admitted to PCU and was placed on IV Decadron and his pulse oximetry was monitored. Patient improved during his hospital stay, on 06/16/2021, patient was seen and examined: On examination he appeared in good health and spirits. Vital signs as documented. Skin warm and dry and without overt rashes. Neck without JVD, neck was supple, trachea midline, thyroid was normal. Lungs clear bilaterally, normal air movement was noted. Heart exam notable for regular rhythm, normal sounds and absence of murmurs, rubs or gallops. Abdomen unremarkable and without evidence of organomegaly, masses, or abdominal aortic enlargement. Bowel sounds are present, abdomen is not distended. Extremities nonedematous, no cyanosis was noted, no clubbing was noted. Neuro: Cranial nerves II through XII are grossly intact, no focal motor deficits were noted, sensation to light touch and pinprick intact, motor exam 5/5 throughout. Psych: Patient is alert and oriented x3, he does not appear anxious or depressed, he does not appear agitated. Patient required supplemental oxygen at the time of his discharge on 06/16/2021, on that date he was discharged in stable condition. Medical Records Data Medical Nutrition Assessment Dietitian: Malnutrition Criteria Met Start: 06/12/21 12:20 Freq: Status: Active Protocol: Document 06/12/21 12:20 RMA (Rec: 06/12/21 12:20 RMA [id number]) Nutrition Malnutrition Evidence of Malnutrition Exists Yes Malnutrition (severe): Acute Illness/Injury Evidenced By Suboptimal Energy Intake ( Severe),Weight Loss (Severe) Clinical Problem Acute Disease or Injury Related Malnutrition Etiology Severe protein-calorie malnutrition in the context of acute illness related to inadequate oral intake Signs/Symptoms as evidenced by ~3% wt loss x past 1-2 weeks and PO meeting less than 50-75% estimated nutrition needs since onset of illness x 12 days Status Active Problem Recommendation Dietitian Recommendations/Changes Continue regular diet as ordered. Will d/c ensure enlive w/ medpass and offer ensure compact TID w/ meals instead. Weight / BMI Weight Weight: 101.5 kg Body Mass Index (BMI) 31.9 ABG / Lab / Microbiology Data Result Diagrams: 06/16/21 06:44 06/16/21 06:44 Laboratory: Laboratory Results - last 24 hr 06/16/21 06:44: WBC 3.6 L, RBC 2.62 L, Hgb 9.3 L, Hct 27.5 L, MCV 105.0 H, MCH 35.5 H, MCHC 33.8, RDW Std Deviation 54.5 H, RDW Coeff of Dina 14.3, Plt Count 151, MPV 10.4, Immature Gran % (Auto) 0.600, Neut % (Auto) 68.2, Lymph % (Auto) 27.8, [place] % (Auto) 3.1, Eos % (Auto) 0.3, Baso % (Auto) 0.0, Absolute Neuts (auto) 2.4, Absolute Lymphs (auto) 0.99, Nucleated RBC % 0 06/16/21 06:44: Sodium 134 L, Potassium 4.1, Chloride 102, Carbon Dioxide 27.0, Anion Gap 5, BUN 37 H, Creatinine 1.04, Estim Creat Clear Calc 62.39, Est GFR (MDRD) Af Amer 89, Est GFR (MDRD) Non-Af 74, BUN/Creatinine Ratio 35.6 H, Glucose 144 H, Calcium 8.2 L Microbiology: Microbiology 06/12/21 08:05 Blood Culture (Wb) - Anticubital Right Bacteria Detection (PCR) - Final 06/12/21 08:05 Blood Culture (Wb) - Anticubital Right Blood Culture - Final Presumptive Micrococcus spp. 06/12/21 08:02 Blood Culture (Wb) - Anticubital Left Blood Culture - Preliminary No growth in 48 hours. 06/12/21 07:48 Nasal Secretion SARS-CoV-2 Antigen (Rapid) - Final SARS-CoV-2 (COVID 19) D/C Instructions Discharge Diet: No restrictions Additional Activity Instructions: Please quarantine for a total of 20 days from the time of your first Covid 19 symptoms Meaningful Use Info Meaningful Use Diagnoses (Choose all that apply): None applicable Discharge Plan Admission Admit Date/Time: 06/12/21 10:10 Primary Reason for Your Visit: COVID-19 pneumonia Attending Provider: Joshua Hitchcock Primary Care Provider: Otoniel Parks Instructions Additional Instructions / Restrictions: I recommend you received the Covid 19 vaccine in 2 months Quarantine for a total of 20 days after your first symptoms of COVID-19 Use oxygen at 6 L/min while ambulating, use oxygen at 2 L/min while at rest Discharge Orders/Prescriptions Prescriptions: New dexamethasone 2 mg tablet 6 mg PO DAILY Qty: 15 RF: 0 Discontinued azithromycin [Zithromax Z-Shimon] 250 mg tablet See Rx Instructions PO .COMPLEX Qty: 6 RF: 0 cefdinir 300 mg capsule 300 mg PO BID Qty: 10 RF: 0 Mucinex 1,200 mg tablet extended release 12hr 1,200 mg PO BID PRN (Reason: congestion) Qty: 20 RF: 0 Referrals / Follow Up: Otoniel Parks MD [Primary Care Provider] - In 1 Week Disposition Disposition (needs filled in before D/C Order can be placed): Home, Self Care Charges/Coding Visit Charges Inpatient E&M: 51606 Disch Hosp
== END 2021-06-16 17:49 | disposition home or self-care (01) | DRG 177 ==
LOC: ED 08:41 → PCU 10:23
PROVIDERS: Admitting Provider Family Medicine; Emergency Provider Emergency Medicine; PCP Family Medicine; Visit Provider Internal Medicine
DX: U07.1 COVID-19 (principal); G93.41 Metabolic encephalopathy; J12.82 Pneumonia due to coronavirus disease 2019; J96.01 Acute respiratory failure with hypoxia; E43 Unspecified severe protein-calorie malnutrition; I49.1 Atrial premature depolarization; G25.81 Restless legs syndrome; K21.9 Gastro-esophageal reflux disease without esophagitis; Z68.31 Body mass index [BMI] 31.0-31.9, adult; N40.0 Benign prostatic hyperplasia without lower urinary tract symptoms; Z87.19 Personal history of other diseases of the digestive system; H35.30 Unspecified macular degeneration
CPT/HCPCS: 36415; 71045; 71275; 80048; 80053; 82550; 83605; 83615; 83880; 84145; 84484; 85025; 85379; 85384; 86140; 87040; 87149; 87426; 93005; 97110; 97162; 97166; 97530; 97535; 97802; 99251; 99285; Q9967; A4216; G0463; J1940

== ENCOUNTER → 2021-06-24 16:44 | Outpatient (CLI) | payer SELFPAY, OTHER ==
--- NOTE | 2021-06-24 16:47 | RAD_ITS ---
STUDY: X-RAY CHEST REASON FOR EXAM: Male, 76 years old. Fever and cough, respiratory difficulty TECHNIQUE: PA and lateral views of the chest. COMPARISON: 06/12/2021 FINDINGS: Lungs are hyperexpanded with persistent diffuse interstitial and airspace opacifications in both lung lindsey without effusions. Findings suggestive of Covid pneumonia. Normal size heart. Normal mediastinum and raimundo. Normal visualized pulmonary arteries. There is atherosclerotic calcification of the aortic arch with tortuosity. There are diffuse degenerative changes of the visualized thoracic spine. Normal visualized ribs, clavicles, and shoulders. There is no demonstrated abnormality of the visualized soft tissue structures of the upper abdomen. RAD/Chest PA and Lateral IMPRESSION: Hyperexpanded lungs with superimposed persistent interstitial and airspace opacifications. Findings again suggesting Covid pneumonia. Electronically Signed: Horace Lewis MD at 17:32 EST , Service support ,
== END ==
PROVIDERS: PCP Family Medicine; Referring Provider Family Medicine; Visit Provider Family Medicine
DX: U07.1 COVID-19 (principal)
CPT/HCPCS: 71046

== ENCOUNTER → 2022-03-30 | Outpatient (CLI) | payer OTHER, SELFPAY ==
[2022-03-30 11:09] LABS: PSA,Total - Annual Screen 1.23 ng/mL (0.00-4.00)
== END | disposition home or self-care (01) ==
LOC: LAB 09:22
PROVIDERS: PCP Family Medicine; Referring Provider Urology; Visit Provider Urology
DX: Z12.5 Encounter for screening for malignant neoplasm of prostate (principal)
CPT/HCPCS: 36415; 84153; G0103

== ENCOUNTER → 2022-06-25 | Outpatient (CLI) | payer OTHER, SELFPAY ==
[2022-06-25 18:07] LABS: ALB/GLOB Ratio 0.5 RATIO (0.9-2.4); AST(SGOT) 21 U/L (15-37); Alanine Aminotransfer ALT/SGPT 37 U/L (16-61); Albumin, Serum 3.2 g/dL (3.2-5.0); Alkaline Phosphatase 77 U/L (45-117); Anion Gap 3 (5-15); BUN 32 mg/dL (7-18); BUN/Creat Ratio 23.7 RATIO (10-20); Calcium,Total 8.6 mg/dL (8.5-10.1); Chloride 103 mmol/L (98-107); Cholesterol 108 mg/dL (200); Creatinine, Serum 1.35 mg/dL (0.70-1.30); EST Glomerular Filtration Rate 54 mL/min (>60); Est Glom Filt Rate - Afr Amer 66 mL/min (>60); Globulin 6.8 g/dL (2.2-4.2); Glucose 100 mg/dL (74-106); High Density Lipoprotein 24 mg/dL; Potassium 3.7 mmol/L (3.5-5.1); Sodium Level 138 mmol/L (136-145); Triglycerides 165 mg/dL; Very Low Density Lipoprotein 33 mg/dL (5-40)
== END | disposition home or self-care (01) ==
LOC: MFPLAB 17:00
PROVIDERS: PCP Family Medicine; Referring Provider Family Medicine; Visit Provider Family Medicine
DX: Z12.31 Encounter for screening mammogram for malignant neoplasm of breast (principal)
CPT/HCPCS: 36415; 80053; 80061; 82306

== ENCOUNTER → 2022-07-03 | Outpatient (CLI) | payer OTHER, SELFPAY ==
--- NOTE | 2022-07-03 09:05 | ART_ITS ---
Reason For Study: Decreased pedal pulses Procedure A bilateral lower extremity continuous wave Doppler with analog waveform analysis,segmental pressures,and ankle brachial indexes without exercise. Unable to exercise patient due to noncompressible vessels. Left Segmental Pressures Left brachial= 143mmHg. Left posterior tibial artery = >254mmHg. Left dorsalis pedis artery = 237mmHg. Left digit = 203 mmHg. The left dorsalis pedis waveforms are triphasic. The left posterior tibial artery waveforms are triphasic. Right Segmental Pressures Right brachial= 145mmHg. Right posterior tibial artery = >254mmHg. Right dorsalis pedis artery = >254mmHg. Right digit = 217 mmHg. The right dorsalis pedis waveforms are triphasic. The right posterior tibial artery waveforms are triphasic. Indices The right ankle brachial index by the dorsalis pedis is NC. The right ankle brachial index by the posterior tibial artery is NC. The right digital-brachial index is 1.50. The left ankle brachial index by the dorsalis pedis is 1.63. The left ankle brachial index by the posterior tibial artery is NC. The left digital-brachial index is 1.40. VL/Lower Ext Art Exam w/o Exercis Interpretation Summary Triphasic Doppler waveforms are noted at ankle level bilaterally. Pulse-volume recordings appear satisfactory at all levels bilaterally. The resting right ankle-brachial index could not be determined due to the non-compressibility of the vasculature at ankle level on the right. The resting left ankle-brachial index is supra-normal. Digital-brachial indices are supra-normal bilaterally. Arterial calcification is noted at ankle and digital levels bilaterally. There is no evidence of significant arterial occlusive disease in the lower extremities bilaterally. Ordering Physician: Otoniel Parks Referring Physician: Otoniel Parks Performed By: Maureen Cage RVT
[2022-07-03 11:41] LABS: Anion Gap 3 (5-15); BUN 25 mg/dL (7-18); BUN/Creat Ratio 18.9 RATIO (10-20); Calcium,Total 8.7 mg/dL (8.5-10.1); Chloride 105 mmol/L (98-107); Creatinine, Serum 1.32 mg/dL (0.70-1.30); EST Glomerular Filtration Rate 56 mL/min (>60); Est Glom Filt Rate - Afr Amer 68 mL/min (>60); Glucose 102 mg/dL (74-106); Potassium 3.7 mmol/L (3.5-5.1); Sodium Level 138 mmol/L (136-145)
[2022-07-06 15:07] LABS: PROEL- A/G Ratio 0.6 (0.7-1.7); PROEL- Albumin 3.6 g/dL (2.9-4.4); PROEL- Alpha-1 Globulin 0.3 g/dL (0.0-0.4); PROEL- Alpha-2 Globulin 0.8 g/dL (0.4-1.0); PROEL- Beta Globulin 0.8 g/dL (0.7-1.3); PROEL- Gamma Globulin 3.9 g/dL (0.4-1.8); PROEL- Globulin, Total 5.9 g/dL (2.2-3.9); PROEL- TOTAL PROTEIN 9.5 g/dL (6.0-8.5)
== END | disposition home or self-care (01) ==
LOC: CVS 09:03 → LAB 09:42
PROVIDERS: PCP Family Medicine; Referring Provider Family Medicine; Visit Provider Family Medicine
DX: R09.89 Other specified symptoms and signs involving the circulatory and respiratory systems (principal); E88.09 Other disorders of plasma-protein metabolism, not elsewhere classified
CPT/HCPCS: 36415; 80048; 84165; 93923

== ENCOUNTER → 2022-10-30 | Outpatient (CLI) | payer OTHER, SELFPAY ==
--- NOTE | 2022-10-30 10:26 | RAD_ITS ---
STUDY: X-RAY CHEST REASON FOR EXAM: Male, 77 years old. Chest pain/pressure TECHNIQUE: PA and lateral views of the chest. COMPARISON: 06/24/2021 FINDINGS: Stable elevation right hemidiaphragm Chronic interstitial changes in both lung lindsey without a superimposed acute pulmonary process. Stable blunting of the right costophrenic angle. Normal size heart. Normal mediastinum and raimundo. Normal visualized pulmonary arteries. Normal visualized aortic arch and descending thoracic aorta. There are diffuse degenerative changes of the visualized thoracic spine. There is degenerative osteoarthritis of the bilateral shoulders. There is no demonstrated abnormality of the visualized soft tissue structures of the upper abdomen. RAD/Chest PA and Lateral IMPRESSION: Chronic interstitial changes, no superimposed acute pulmonary process. Previously noted interstitial and airspace opacifications have cleared Electronically Signed: Horace Lewis MD at 10:47 EDT ,
[2022-10-30 12:51] LABS: Erythrocyte Sedimentation Rate 27 mm/hr (0-20)
[2022-10-30 12:55] LABS: CRP < 2.90 mg/L (0.0-3.0)
[2022-11-01 08:28] LABS: ANTINUCLEAR ANTIBODIES DIRECT Negative (Negative)
== END | disposition home or self-care (01) ==
PROVIDERS: PCP Family Medicine; Referring Provider Internal Medicine Pulmonary Disease; Visit Provider Internal Medicine Pulmonary Disease
DX: R06.02 Shortness of breath (principal)
CPT/HCPCS: 36415; 71046; 85652; 86038; 86140; 86431

== ENCOUNTER → 2023-01-15 | Outpatient (CLI) | payer OTHER, SELFPAY ==
[2023-01-15 12:28] LABS: Absolute Lymphocyte Count 1.69 X10^3/uL (0.83-4.51); Absolute Neutrophil Count 0.5 X10^3/uL (2.0-7.7); Hematocrit 24.8 % (40-54); Hemoglobin 7.8 g/dL (13.0-16.5); Lymphocyte # 1.69 X10^3/ul (0.83-4.51); Lymphocyte % 75.8 % (19-41); Mean Corp Hgb Conc 31.5 g/dL (32-36); Mean Corpuscular Hgb 33.9 pg (27.0-32.0); Mean Corpuscular Volume 107.8 fL (80-94); Mean Platelet Vol. 9.7 fl (6.2-12.0); Monocyte# 0.03 X10^3/uL; Monocyte% 1.3 % (0-10); NRBC Flagged by Analyzer 0 % (0-5); Neutrophil % 22.5 % (47-70); POSITIVE DIFFERENTIAL YES; POSITIVE MORPHOLOGY YES; Platelet Count 103 K/mm3 (150-450); RBC Distribution Width CV 19.1 % (11.6-14.6); RBC Distribution Width SD 74.8 fl (35.1-43.9); White Blood Count 2.2 K/mm3 (4.4-11.0)
[2023-01-15 12:41] LABS: Differential Indicated SCAN CRITERIA MET
[2023-01-15 13:07] LABS: Vitamin B12 987 pg/mL (211-911)
[2023-01-15 13:30] LABS: Anisocytosis 1+
[2023-01-15 13:31] LABS: ALB/GLOB Ratio 0.3 RATIO (0.9-2.4); AST(SGOT) 19 U/L (15-37); Alanine Aminotransfer ALT/SGPT 28 U/L (16-61); Albumin, Serum 2.3 g/dL (3.2-5.0); Alkaline Phosphatase 75 U/L (45-117); Anion Gap 1 (5-15); BUN 23 mg/dL (7-18); BUN/Creat Ratio 17.6 RATIO (10-20); Calcium,Total 8.8 mg/dL (8.5-10.1); Chloride 102 mmol/L (98-107); Creatinine, Serum 1.31 mg/dL (0.70-1.30); EST Glomerular Filtration Rate 56 mL/min (>60); Est Glom Filt Rate - Afr Amer 68 mL/min (>60); Ferritin 401 ng/mL (26-388); Globulin 7.3 g/dL (2.2-4.2); Glucose 93 mg/dL (74-106); Iron 82 ug/dL (65-175); Iron Binding Capacity,Total 223 ug/dL (250-450); Potassium 3.7 mmol/L (3.5-5.1); Protein, Total 9.6 g/dL (6.4-8.2); Sodium Level 135 mmol/L (136-145)
[2023-01-21 14:08] LABS: PROEL- A/G Ratio 0.5 (0.7-1.7); PROEL- Alpha-1 Globulin 0.3 g/dL (0.0-0.4); PROEL- Alpha-2 Globulin 0.9 g/dL (0.4-1.0); PROEL- Beta Globulin 0.8 g/dL (0.7-1.3); PROEL- Gamma Globulin 3.6 g/dL (0.4-1.8); PROEL- Globulin, Total 5.6 g/dL (2.2-3.9); PROEL- TOTAL PROTEIN 8.6 g/dL (6.0-8.5)
== END | disposition home or self-care (01) ==
PROVIDERS: PCP Family Medicine; Visit Provider Family Medicine
DX: E88.09 Other disorders of plasma-protein metabolism, not elsewhere classified (principal); D64.9 Anemia, unspecified; J18.9 Pneumonia, unspecified organism
CPT/HCPCS: 36415; 80053; 82607; 82728; 82746; 83540; 83550; 84165; 85025

== ENCOUNTER → 2023-01-26 | Outpatient (CLI) | payer OTHER, SELFPAY ==
[2023-01-28 15:09] LABS: Immunoglobulin A 12 mg/dL (61-437); Immunoglobulin G 5476 mg/dL (603-1613); Immunoglobulin M 6 mg/dL (15-143)
== END | disposition home or self-care (01) ==
PROVIDERS: PCP Family Medicine; Referring Provider Family Medicine; Visit Provider Family Medicine
DX: E88.09 Other disorders of plasma-protein metabolism, not elsewhere classified (principal)
CPT/HCPCS: 36415; 82784; 86334

== ENCOUNTER → 2023-02-03 | Outpatient (CLI) | payer OTHER, SELFPAY ==
[2023-02-03 12:30] LABS: Absolute Lymphocyte Count 2.51 X10^3/uL (0.83-4.51); Absolute Neutrophil Count 0.6 X10^3/uL (2.0-7.7); Hematocrit 24.5 % (40-54); Hemoglobin 7.4 g/dL (13.0-16.5); Lymphocyte # 2.51 X10^3/ul (0.83-4.51); Lymphocyte % 80.4 % (19-41); Mean Corp Hgb Conc 30.2 g/dL (32-36); Mean Corpuscular Hgb 32.9 pg (27.0-32.0); Mean Corpuscular Volume 108.9 fL (80-94); Mean Platelet Vol. 9.2 fl (6.2-12.0); Monocyte# 0.05 X10^3/uL; Monocyte% 1.6 % (0-10); Neutrophil # 0.55 X10^3/uL (2.7-7.7); Neutrophil % 17.7 % (47-70); POSITIVE DIFFERENTIAL YES; POSITIVE MORPHOLOGY YES; Platelet Count 106 K/mm3 (150-450); RBC Distribution Width CV 18.6 % (11.6-14.6); RBC Distribution Width SD 74.6 fl (35.1-43.9); Red Blood Count 2.25 M/mm3 (4.6-6.2); White Blood Count 3.1 K/mm3 (4.4-11.0)
[2023-02-03 12:31] LABS: NRBC Flagged by Analyzer 0 % (0-5)
[2023-02-03 12:36] LABS: Differential Indicated SCAN CRITERIA MET
[2023-02-03 13:18] LABS: Anisocytosis 1+
== END | disposition home or self-care (01) ==
LOC: MFPLAB 09:57
PROVIDERS: Family Medicine; PCP Family Medicine; Visit Provider Family Medicine
DX: D64.9 Anemia, unspecified (principal)
CPT/HCPCS: 36415; 85025

== ENCOUNTER 2023-02-23 09:12 | Outpatient (CLI) | payer OTHER, SELFPAY ==
[2023-02-23] VITALS (7 sets, daily range): BP systolic 118–138; BP diastolic 55–88; PULSE 53–68; RESP 16; TEMP 36.2–37.1; O2SAT 98–100; BMI 32.5
[2023-02-23] MEDS: 0.9% NaCl Peripheral Flush Adult/Peds IV (09:24)
== END 2023-02-23 09:13 | disposition home or self-care (01) ==
LOC: MEDOUTP 09:12
PROVIDERS: PCP Family Medicine; Referring Provider Internal Medicine Hematology & Oncology; Visit Provider Internal Medicine Hematology & Oncology
DX: D61.818 Other pancytopenia (principal)
CPT/HCPCS: 36430; 86850; 86900; 86901; 86920; P9016; A4216